=== PATIENT | male | born 1945 | race Caucasian/White ===

== ENCOUNTER 2018-01-05 09:00 | Day surgery (SDC) | payer MEDICARE, OTHER, SELFPAY ==
[2018-01-05] VITALS (9 sets, daily range): BP systolic 100–149; BP diastolic 58–89; PULSE 76–89; RESP 10–24; TEMP 36.6–36.8; O2SAT 92–96; BMI 34.9
--- NOTE | 2018-01-05 | PATH_ITS ---
[facility] Accession Number: [id number] . 01 Material submitted: . PART A: ANTRAL BIOPSIES PART B: EG JUNCTION BIOPSY . 02 Diagnosis: A. Antrum, Biopsies: Gastric antral and body mucosa with mild chronic gastritis. No evidence of Helicobacter organisms on H/E stain. Negative for intestinal metaplasia, dysplasia or malignancy. . B. Gastroesophageal Junction, Biopsy: Squamous mucosa with no diagnostic abnormality. 0-1 eosinophils per 40X high-power field. No columnar mucosa present for evaluation. Negative for dysplasia or malignancy. MRV/01/06/2018 . 02 Electronically signed: . Remington Stone MD, PhD, Pathologist NPI- [id number] . 01 Gross description: . Received two formalin-filled containers, both labeled with the patient's name: . A. In a container labeled antral, are three 0.1-0.3 cm portions of tissue, entirely submitted in cassette A. B. In a container labeled EG junction, are four 0.1-0.3 cm portions of tissue, entirely submitted in cassette B. ([id number]) /FRR . 02 Pathologist provided ICD-10: R10.13 . 02 CPT . 736270, 568994 Specimen Comment: A duplicate report has been generated due to demographic updates. Performed at: 01 [facility] [address] [place] [address], [place], [place] [id number] MD Gt Katz MD Phone: [phone] Performed at: 02 [facility] [address] [place], [place] [id number] MD Nola Russell MD Phone: [phone]
[2018-01-05] MEDS: SODIUM CHLORIDE 0.9% 1,000 ML 200 ML IV (09:48)
--- NOTE | 2018-01-05 10:05 | PM.PREOP ---
Pre-operative Note Interval Note Pre-op Check: Yes History & Physical Reviewed by Physician and Yes Exam Performed Changes: No H&P completed within 30 days and has changed as indicated here:: Patient seen and examined today. No changes from his history and physical examination as documented December 24, 2017. Proceed with EGD today as planned. ASA Class (for procedural sedation): II
--- NOTE | 2018-01-05 10:30 | PM.OP.ENDO ---
Operative Date/Time/Diagnoses Date of procedure: 01/05/18 Time of procedure: 10:30 Pre-op diagnosis: Reflux and epigastric pain Post-op diagnosis: other (Mild gastritis, small hiatal hernia, and minimal esophagitis) Procedure & Clinicians Study performed: 1. Sedation per surgeon 2. Esophagogastroduodenoscopy with cold forceps biopsies Same procedure as scheduled: Yes Indications: 72-year-old male with longstanding history of reflux disease who recently presented with dysphagia and epigastric pain. His symptoms were progressively severe despite proton pump inhibitor therapy. He was therefore recommended ago EGD with biopsy and possible dilatation. Surgeon: Sergio Monzon Procedure Notes SCOAP/Timeout: Yes Procedure in detail: After obtaining informed consent, the patient was brought to the GI suite and placed in the left lateral decubitus position on the examination table. After placement of appropriate monitors, the patient was given incremental doses of Versed and Fentanyl until an appropriate level of sedation was achieved. A time out was held per SCOAP protocol. A bite block was gently placed between the patient's teeth. The endoscope was lubricated and then passed into the patient's posterior oropharynx. The esophagus was cannulated under direct vision and the scope was passed to the second portion of the duodenum without difficulty. The scope was then withdrawn with careful examination of all areas of the upper GI tract and mucosa. In the stomach, the instrument was retroflexed and the GE junction examined. Z-line was located 40 cm from the incisors. The scope was straightened and the procedure continued with examination of the remainder of the upper GI tract. Findings are noted above. Air was aspirated from the stomach and the endoscope gently removed from the esophagus. The patient was allowed to awaken from sedation without difficulty and taken to the post-anesthesia care unit in good condition. Scope withdrawal time: Not applicable Sedation minutes: 11 Findings: gastritis, hiatal hernia and other findings (Minimal localized esophagitis at the gastroesophageal junction but without obvious Metcalf's esophagus. No esophageal strictures or lesions.) Specimen(s): other (1. Antral biopsies 2. Gastroesophageal junction biopsies) Complications: none Recommendations: Reflux diet and Continue medication(s) Plan for aftercare: 1. Discharge home Follow up: weeks (Two weeks with Dr. Monzon) Disposition: PACU
[2018-01-05] MEDS: fentaNYL 250 MCG/5 ML INJ IV (10:34)
[2018-01-05] MEDS: MIDAZOLAM 5 MG/5 ML VIAL IV (10:35)
[2018-01-05] MEDS: TETRACAINE/BENZOCAINE/BUTAMBEN (CETACAINE) BOTTLE 1 SPRAY TOP (10:36)
[2018-01-05] MEDS: LIDOCAINE 4% SOLN 50 ML 20 ML TOP (10:37)
== END 2018-01-05 11:36 | disposition home or self-care (01) ==
PROVIDERS: PCP Family Medicine; Visit Provider Surgery
PROC: 0DJ08ZZ Inspection of Upper Intestinal Tract, Via Natural or Artificial Opening Endoscopic (ICD-10-PCS; CPT 43235; principal; 2018-01-05 10:30)
DX: K21.0 Gastro-esophageal reflux disease with esophagitis (principal); K29.70 Gastritis, unspecified, without bleeding; K44.9 Diaphragmatic hernia without obstruction or gangrene; F17.210 Nicotine dependence, cigarettes, uncomplicated; F41.9 Anxiety disorder, unspecified; I10 Essential (primary) hypertension; E78.5 Hyperlipidemia, unspecified
CPT/HCPCS: 43239; 88305; 99152; J2250; J3010

== ENCOUNTER → 2019-02-11 11:17 | Outpatient (CLI) | payer MEDICARE, OTHER, SELFPAY ==
--- NOTE | 2019-02-11 12:30 | DI.CT.S_ITS ---
PROCEDURE: CT ABDOMEN W CON INDICATIONS: Right upper quadrant pain TECHNIQUE: After the administration of oral and intravenous contrast, 5 mm thick sections acquired from the diaphragms to the iliac crests. 5 mm thick coronal and sagittal reformats were acquired. For radiation dose reduction, the following was used: automated exposure control, adjustment of mA and/or kV according to patient size. COMPARISON: None. FINDINGS: Image quality: Excellent. Lung bases: Lung bases are clear. Heart size is normal. Solid organs: Liver is normal in size and enhancement. Gallbladder appears normal. Biliary system is non dilated. Pancreas enhances normally. Spleen is normal in size and enhancement. No adrenal nodules. Kidneys are normal in size, without hydronephrosis. Peritoneum and bowel: Contrast enhanced bowel loops appear normal in caliber. No free fluid or air. Food material fills but does not distend much of the stomach. Accurate assessment of the gastric wall therefore is very limited. Nodes and vessels: No retroperitoneal or mesenteric adenopathy by size criteria. Aorta and inferior vena cava are normal in size. Bones: No suspicious bony lesions. No vertebral body compression fractures. Miscellaneous: No ventral hernias. Note is made of mild prominence of the soft tissues at the umbilicus, tapering peripherally. No associated fluid collection is seen in this area. IMPRESSION: 1. A definite source of right upper quadrant pain is not seen. As noted, the gastric wall is poorly visualized due to food material filling much of the gastric lumen, without distention. No inflammatory process is found, no biliary distention is seen. 2. Please correlate clinically at the umbilicus where the soft tissues are unusually prominent in their appearance without associated fluid collection. Omphalitis, chronic or acute, could produce this appearance. Dictated by: Willy Kumari M.D. on 02/11/2019 at 16:29 Approved by: Willy Kumari M.D. on 02/11/2019 at 16:33
== END ==
PROVIDERS: PCP Student in an Organized Health Care Education/Training Program; Visit Provider Nurse Practitioner Family
DX: R10.11 Right upper quadrant pain (principal)
CPT/HCPCS: 74160

== ENCOUNTER → 2019-12-13 14:54 | Outpatient (CLI) | payer MEDICARE, OTHER, SELFPAY ==
[2019-12-14 13:28] LABS: COVID19 Sendout Not Detected (Not Detect)
== END ==
PROVIDERS: PCP Student in an Organized Health Care Education/Training Program; Visit Provider Physician Assistant
DX: Z11.59 Encounter for screening for other viral diseases (principal)
CPT/HCPCS: 87635

== ENCOUNTER → 2019-12-16 14:42 | Outpatient (CLI) | payer MEDICARE, OTHER, SELFPAY ==
--- NOTE | 2019-12-24 17:20 | PM.PFT.1 ---
Pulmonary Function Test Referral & Results Date Patient Seen: 12/16/19 Requesting provider: Yadira Oliver Results: The spirometry demonstrates an FVC of 3.82 L which is 95% of predicted. The FEV1 was measured at 1.90 L which is 64% of predicted. The FEV1/FVC ratio was 50 which is 67% of predicted. Following the administration of bronchodilator there was no notable change. Lung volumes show an SVC of 4.07 L which is 95% of predicted. The diffusing capacity was measured at 26.17 which is 80% of predicted. The maximum voluntary ventilation was minimally reduced Interpretation: This study demonstrates moderate obstructive lung disease based on reduction FEV1 and FEV1/FVC ratio, without evidence of benefit following bronchodilator administration
== END ==
PROVIDERS: PCP Student in an Organized Health Care Education/Training Program; Referring Provider Student in an Organized Health Care Education/Training Program; Visit Provider Student in an Organized Health Care Education/Training Program
DX: R06.09 Other forms of dyspnea (principal); F17.210 Nicotine dependence, cigarettes, uncomplicated; J98.8 Other specified respiratory disorders
CPT/HCPCS: 94060; 94726; 94729

== ENCOUNTER → 2021-06-18 15:39 | Outpatient (CLI) | payer MEDICARE, OTHER, SELFPAY ==
[2021-06-18 17:41] LABS: COVID19 -Nasal RAPID Negative (Negative)
== END ==
PROVIDERS: PCP Student in an Organized Health Care Education/Training Program; Visit Provider Family Medicine Sleep Medicine
DX: Z20.822 Contact with and (suspected) exposure to COVID-19 (principal)
CPT/HCPCS: 87635; C9803

== ENCOUNTER 2021-06-19 12:42 | Day surgery (SDC) | payer MEDICARE, OTHER, SELFPAY ==
[2021-06-19] VITALS (7 sets, daily range): BP systolic 116–159; BP diastolic 59–96; PULSE 75–91; RESP 14–19; TEMP 36–36.6; O2SAT 92–97; BMI 35.2
--- NOTE | 2021-06-19 | PATH_ITS ---
[facility] Accession Number: [id number] . 01 Material submitted: . PART A: colon - SIGMOID BIOPSY PART B: rectum - RECTAL POLYP . 02 Diagnosis: A. Sigmoid Colon, Biopsy: Hyperplastic colonic mucosa. Negative for active, chronic, and microscopic colitis. Negative for dysplasia and malignancy. . B. Rectum, Polyp, Biopsy: Benign fibroepithelial polyp (skin tag). MRV 06/25/2021 1429 Local . 02 Electronically signed: . Nola Russell MD, Pathologist NPI- [id number] . 01 Gross description: . Part A: SIGMOID BIOPSY: Received in formalin is 1 fragment(s) of potter, soft tissue measuring 0.2 x 0.1 x 0.1 cm submitted entirely in 1 cassette(s) Part B: RECTAL POLYP: Received in formalin is 1 fragment(s) of potter, soft tissue measuring 2.0 x 1.5 x 1.0 cm which is inked, serially sectioned and submitted entirely in 4 cassette(s) /CPE 06/20/2021 0848 Local . 02 Pathologist provided ICD-10: Z12.11 . 02 CPT . 863694, [id number] Specimen Comment: A courtesy copy of this report has been sent to [phone] Performed at: 01 [facility] [address], [place], [place] [id number] MD Gt Katz MD Phone: [phone] Performed at: 02 [facility] [address] [place], [place] [id number] MD Nola Russell MD Phone: [phone]
--- NOTE | 2021-06-19 12:15 | PM.HP.1 ---
History of Present Illness History of Present Illness Date Patient Seen: 06/19/21 Chief complaint: SCREENING COLONOSCOPY Narrative: 75 year old male comes in today for consideration of a screening colonoscopy. Two lifetime colonoscopies. Last colonoscopy on 04/30/[address] Wolfe, noted to be tortuous with markedly elongated sigmoid. Colonoscopy was indicated for screening and personal history of colon polyps. Findings included a 2-3 mm tubular adenoma in the mid-transverse colon, minimal diverticulosis, and prolapsing and ulcerated external/internal hemorrhoids. There have been no lower GI symptoms suggesting disease such as change in bowel habits, bleeding, abdominal pain or anemia. There's been no family history of colon cancer or colon polyps. Overall health issues have been stable, including no major cardiac events for at least 6 weeks. PCP: Dr. Arroyo Past Medical History: Metabolic syndrome HYPERLIPIDEMIA HYPERTENSION CHEST PAIN SLEEP APNEA, OBSTRUCTIVE, failed CPAP ATAXIA GERD DYSPHAGIA BPH W/URINARY OBSTRUCTION TOBACCO USE DISORDER OBESITY (BMI <40) CATARACT ALLERGIC RHINITIS Cough due to PITO inhibitor ONYCHOMYCOSIS History of colon polyps Past Surgical History: Palate revision for sleep apnea Umbilical hernia repair 2016 Cataract Extraction bilateral 06/08 Colonoscopy x2 Family History: Father: Heart disease Sibling(s): breast cancer Social History: Marital Status: Reyes Choe Children: Nikos and Juanita Aguilera Occupation: Contractor Household Members: Education: 14 years Alcohol drinks/day: 0 Caffeine use/day: 5 Type of Exercise: work, walking Exercise Times per Week: daily Guns in home: yes Dental Care w/in 6 mos.: yes Sun Exposure: frequently Seat Belt Use: yes Smoking Status: current every day smoker Tobacco Type: cigars Counseled to Quit Smoking: yes Drug Use: never HIV High Risk Behavior: no Patient History Medical History Anxiety Dysphagia History of colon polyps Hyperlipidemia Hypertension Mild acid reflux Obesity Tobacco abuse Umbilical hernia Surgical History History of cataract surgery History of colonoscopy History of esophagogastroduodenoscopy (EGD) History of umbilical hernia repair History of uvulopalatopharyngoplasty Family & Social History Family History Father Heart disease Social History: household members spouse Tobacco & Substance use: Smoking Status Current every day smoker Meds Home Medications and Allergies Home Medications Medication Instructions Recorded Confirmed Type losartan 25 mg tablet 25 mg PO DAILY #0 04/30/16 06/19/21 History fenofibrate micronized 200 mg 200 mg PO DAILY 12/24/17 06/19/21 History capsule omeprazole 40 mg capsule,delayed 40 mg PO DAILY 12/24/17 06/19/21 History release Allergies Allergy/AdvReac Type Severity Reaction Status Date / Time Penicillins [PENICILLINS] Allergy Mild RASH Verified 03/24/19 14:58 Review of Systems Review of Systems Narrative: All remaining ROS were reviewed and negative except as addressed. Exam Narrative Exam Narrative: GENERAL: Alert and oriented, appearing stated age and in no acute distress. HEENT: Head normocephalic/atraumatic. Extraocular movements intact. LUNGS: Clear to ausculation bilaterally, no wheezes, rhonchi or rales. CV: Normal S1 and S2 with regular rate and rhythm, no audible murmurs, rubs or gallops. ABDOMEN: Soft, non-tender, non-distended, no organomegaly. Positive bowel sounds. EXTREMITIES: No clubbing, cyanosis, or edema. NEURO: Cranial nerves II through XII grossly intact, no focal deficits. PSYCH: Alert and oriented x 3. SKIN: No concerning lesions. Assessment & Plan Assessment & Plan narrative: 1. History of colon polyps 2. Screening for colon cancer Plan for colonoscopy. The nature and character of the procedure as well as anticipated results were discussed. The possibility of not completing the procedure was also discussed. Possible complications including aspiration pneumonia, bleeding, perforation and reaction to medications either for sedation or preparation and missed lesions were discussed. Questions were answered and proceeding to the colonoscopy was elected. Informed consent signed. I sincerely appreciate the referral allowing me to participate in this patient's care. Please contact me with any questions or concerns. Time Spent With Patient Critical Care time: I spent a total of [] minutes of critical care time on this patient's care today; this time is exclusive of procedural time.
--- NOTE | 2021-06-19 12:21 | PM.OP.COLON ---
Operative Date/Time/Diagnoses Date of procedure: 06/19/21 Procedure Notes SCOAP/Timeout: 1:52 p.m. Procedure in detail: ENDOSCOPIST: Yadira Oliver MD Sedation RN: Amanda Lugo RN Sedation start time: 1:53 p.m. Sedation end time: 2:28 p.m. PROCEDURE: Colonoscopy with hot snare and hemoclip INDICATIONS: 1. History of colon polyps 2. Screening for colon cancer MEDICATION: Levsin 0.125 mg sublingual, incremental doses of Versed and fentanyl until appropriate level sedation achieved. ASA CLASS: 2 CECAL WITHDRAWAL TIME: 33 minutes COMPLICATIONS: None. EXTENT OF PROCEDURE: Cecum. QUALITY OF PREP: Good with portions of liquid stool. PROCEDURE: Prior to insertion of the colonoscope, a digital rectal examination was accomplished with circumferential palpation of the distal rectal mucosa without significant findings being noted. The high-definition colonoscope was passed into the rectum in the usual fashion and advanced over to the cecum without difficulty. The ileocecal valve, appendiceal stoma, and medial wall all could be inspected and no abnormalities were seen. ASCENDING COLON: As the colonoscope was withdrawn, care was taken to expose and inspect the haustral folds and no abnormalities were seen. HEPATIC FLEXURE: Normal, no polyps, diverticula or other abnormalities. TRANSVERSE COLON: Normal, no polyps, diverticula or other abnormalities. DESCENDING COLON: Normal, no polyps, diverticula or other abnormalities. SIGMOID COLON: A 2 mm polyp was seen and removed with cold biopsy forceps, excellent hemostasis. Otherwise, minor diverticulosis and no other abnormalities. RECTUM: J maneuver was produced. A 2 cm rectal pedunculated polyp was seen and removed with 10 mm hot snare. Excellent hemostasis noted, hemoclip placed prophylactically. There was no significant perianal disease. The J maneuver was broken. The remainder of the rectum was inspected and there was minor external hemorrhoid disease. The scope was withdrawn. IMPRESSION: 1. Sigmoid polyp x1, 2 mm, removed with cold biopsy forceps 2. Rectal polyp x1, 2 cm, removed with hot snare snare, hemoclip placed prophylactically 3. External hemorrhoid disease, minor 4. Sigmoid diverticulosis, minor PLAN: 1. Follow-up in clinic status post pathology results. The possibility of a missed lesion including a malignancy has been discussed with the patient previously. Potential alarm symptoms have been discussed and should be reported immediately.
[2021-06-19] MEDS: LACTATED RINGERS 1,000 ML 200 ML IV (13:15)
[2021-06-19] MEDS: HYOSCYAMINE 0.125 MG TABLET PO (13:16)
[2021-06-19] MEDS: fentaNYL 250 MCG/5 ML INJ 150 MCG IV (13:53)
[2021-06-19] MEDS: MIDAZOLAM 5 MG/5 ML VIAL IV (13:53)
== END 2021-06-19 15:22 | disposition home or self-care (01) ==
PROVIDERS: PCP Student in an Organized Health Care Education/Training Program; Referring Provider Student in an Organized Health Care Education/Training Program; Visit Provider Student in an Organized Health Care Education/Training Program
PROC: 0DJD8ZZ Inspection of Lower Intestinal Tract, Via Natural or Artificial Opening Endoscopic (ICD-10-PCS; CPT 45378; principal; 2021-06-19 13:45)
DX: Z12.11 Encounter for screening for malignant neoplasm of colon (principal); Z86.010 Personal history of colon polyps; K57.30 Diverticulosis of large intestine without perforation or abscess without bleeding; K64.4 Residual hemorrhoidal skin tags; K63.5 Polyp of colon
CPT/HCPCS: 45385; 45380; C9803; J2250; J3010

== ENCOUNTER 2022-06-23 10:38 | Emergency (ER) | payer MEDICARE, OTHER, SELFPAY ==
[2022-06-23] VITALS (7 sets, daily range): BP systolic 144–180; BP diastolic 89–103; PULSE 61–88; RESP 18–33; TEMP 36.4; O2SAT 97–99; BMI 33.0
--- NOTE | 2022-06-23 12:12 | DI.CT.S_ITS ---
PROCEDURE: CT ANGIO HEAD AND NECK INDICATIONS: sharp left sided headache 4 days, giant cell vs abnormal? TECHNIQUE: Pre-contrast 4.5 mm thick sections acquired from the foramen magnum to the vertex. After the administration of intravenous contrast, 1 mm thick sections acquired from the aortic arch through the [place] of [place]. Post-contrast 4.5 mm thick sections then re-acquired from the foramen magnum to the vertex. 3-dimensional ofjxgry-faxpdjrsb-gwdlgihktn (MIP) and/or volume rendering reformats were acquired of the central intracranial vasculature and neck separately. For radiation dose reduction, the following was used: automated exposure control, adjustment of mA and/or kV according to patient size. COMPARISON: [facility], , CAROTID ARTERY DOPPLER BILAT, 03/21/2014, 8:20. FINDINGS: Image quality: Mild streak artifact can be seen through the skull base. BRAIN: CSF spaces: Ventricles are normal in size and shape. Basal cisterns are patent. No extra-axial fluid collections. Brain: No midline shift. No intracranial bleeds or masses. Bull-white matter interface appears intact. Skull and face: Calvarium and facial bones appear intact, without suspicious lesions. Orbits appear normal. Sinuses: Moderate mucosal thickening is seen within the ethmoid air cells and the left sphenoid sinus. Within the right maxillary sinus, there is a mucous retention cyst seen. The visualized paranasal sinuses are otherwise unremarkable. No abnormal fluid is seen within the mastoid air cells. HEAD CT ANGIOGRAPHY: Anterior circulation: Intracranial internal carotid arteries are normal in size and flow. The flow within the paired anterior cerebral arteries is normal and symmetric. The flow within the middle cerebral arteries is normal and symmetric. The anterior communicating artery is seen. No aneurysms are seen. Posterior circulation: Visualized portions of the vertebral arteries demonstrate normal caliber, and join to form a normal appearing basilar artery. Flow within the posterior cerebral arteries is normal and symmetric. No aneurysms are seen. NECK CT ANGIOGRAPHY: Carotid system: Incidental note is made of a common origin of the right brachiocephalic artery and the left common carotid artery (bovine type arch). This is considered to be a developmental variant of no clinical consequence. The origins of the common carotid arteries appear patent. The common carotid arteries demonstrate normal caliber and courses. The bifurcation regions are both widely patent. The internal carotid arteries demonstrate normal calibers and courses. Scrutiny is given to the external carotid arteries and the temporal arteries. To the limits of CT, no significant abnormalities are seen. Posterior circulation: The origins of the vertebral arteries both appear widely patent. The more superior extracranial portions of both vertebral arteries also demonstrate normal courses and calibers. They join to form a normal appearing basilar artery. Soft tissues: Visualized neck soft tissues demonstrate no suspicious abnormalities. Bones: No suspicious bony lesions. Visualized cervical spine appears normally aligned. At least moderate lower cervical spine degenerative change can be seen. IMPRESSION: No acute intracranial process is seen. No acute intracranial hemorrhage is seen. No significant intracranial arterial abnormality is seen. Within the arteries of the neck, no hemodynamically significant stenosis can be seen. No significant abnormality of the external carotid arteries or the temporal arteries can be seen. Moderate paranasal sinus disease is noted. Additional findings: At least moderate lower cervical spine degenerative change Bovine type aortic branching pattern Any quantitative measurements of stenosis were performed using NASCET criteria. Dictated by: William Dunne M.D. on 06/23/2022 at 13:24 Approved by: William Dunne M.D. on 06/23/2022 at 13:28
--- NOTE | 2022-06-23 12:26 | ED_ITS ---
HPI - Headache <DEJA Ray - Last Filed: 06/23/22 15:00> General Chief Complaint: Headache Stated Complaint: headache as of , spot on head feels warm Time Seen by Provider: 06/23/22 12:03 Mode of arrival: Ambulatory History of Present Illness HPI Narrative: This is a 76-year-old gentleman presents emergency department complaining of 4 days of a left-sided headache that he states started as hair pulling sensation on the left parietal scalp. He states that it has been pulsating, increasing in severity, states it woke him up 6 times last night. Complains of a left-sided headache in this same region. Denies any pain over his temporal region, denies vision changes, weakness, urinary changes, fever chills, neck pain, rash, recent injury, or other associated symptoms. He states that his is on hospice and he cares for her, he came in because he has been having worsening pain. States he has a history of 55 years of smoking, is on losartan for his blood pressure and omeprazole for GERD. States that it feels hot to palpation over his scalp where it hurts. He is not anticoagulated Related Data Home Medications Medication Instructions Recorded Confirmed losartan 25 mg tablet 25 mg PO DAILY ##0 04/30/16 06/19/21 fenofibrate micronized 200 mg 200 mg PO DAILY 12/24/17 06/19/21 capsule omeprazole 40 mg capsule,delayed 40 mg PO DAILY 12/24/17 06/19/21 release Previous Rx's Medication Instructions Recorded gabapentin 100 mg capsule 100 mg PO BEDTIME #14 caps 06/23/22 naproxen 500 mg tablet (Naprosyn) 500 mg PO BID PRN pain #30 tabs 06/23/22 prednisone 20 mg tablet 20 mg PO DAILY 4 days #4 tabs 06/23/22 Allergies Allergy/AdvReac Type Severity Reaction Status Date / Time Penicillins [PENICILLINS] Allergy Mild RASH Verified 06/23/22 10:57 Review of Systems <DEJA Ray - Last Filed: 06/23/22 15:00> Review of Systems ROS Unobtainable: All systems reviewed & are unremarkable except as noted in HPI and below Patient History <DEJA Ray - Last Filed: 06/23/22 15:00> Medical History (Updated 06/23/22 @ 14:49 by DEJA Ray) Anxiety Dysphagia History of colon polyps Hyperlipidemia Hypertension Mild acid reflux Obesity Tobacco abuse Umbilical hernia Surgical History History of cataract surgery History of colonoscopy History of esophagogastroduodenoscopy (EGD) History of umbilical hernia repair History of uvulopalatopharyngoplasty Family History Father Heart disease Social History household members: spouse Smoking Status: Current every day smoker alcohol intake: never Smoking Status: Current every day smoker tobacco type: cigarettes alcohol intake frequency: 0-2 drinks per day Substance Use Type: does not use Exam <DEJA Ray - Last Filed: 06/23/22 15:00> Narrative Exam Narrative: Reviewed vitals signs and nursing notes. General: Pleasant, sitting upright, in no acute distress, well groomed, afebrile HEENT: symmetrical facial expressions, moist mucous membranes, neck is supple, no anterior cervical lymphadenopathy, no palpable scalp deformity, left parietal scalp without a rash, small area of seborrheic dermatitis without erythema, no tenderness, no rash or lesion, no exquisite tenderness with exam CV: regular rate and rhythm, warm extremities Respiratory: normal work of breathing, without tachypnea or hypoxia. GI: abdomen soft and nondistended MSK: moves all extremities, no weakness, normal tone, ambulatory without deficit Skin: brisk capillary refill, without rash, blister, erythema, or evidence of abnormal texture Neuro: clear speech and normal cognition, A&O x3, GCS 15, no focal motor or sensation deficits, without visual neglect, EOMI, PERRLA, cranial nerves 2-12 are grossly intact Initial Vital Signs Initial Vital Signs: Vital Signs Temperature 97.6 F 06/23/22 10:53 Pulse Rate 88 06/23/22 10:53 Respiratory Rate 18 06/23/22 10:53 Blood Pressure 144/94 H 06/23/22 10:53 Pulse Oximetry 99 06/23/22 10:53 Oxygen Delivery Method Room Air 06/23/22 10:53 <Fabrizio Tejeda DO - Last Filed: 06/23/22 13:26> Initial Vital Signs Initial Vital Signs: Vital Signs Temperature 97.6 F 06/23/22 10:53 Pulse Rate 88 06/23/22 10:53 Respiratory Rate 18 06/23/22 10:53 Blood Pressure 144/94 H 06/23/22 10:53 Pulse Oximetry 99 06/23/22 10:53 Oxygen Delivery Method Room Air 06/23/22 10:53 Course <DEJA Ray - Last Filed: 06/23/22 15:00> Orders Ordered: ED Orders 06/23/22 12:12 CT angio head and neck Stat EKG-12 Lead Stat 06/23/22 13:15 CBC Auto Diff [Complete Blood Count AUTO DIFF] Stat CMP [Comprehensive Metabolic Panel] Stat CRP [C-Reactive Protein Quant] Stat ESR [Erythrocyte Sedimentation Rate] Stat Magnesium Stat Discontinued Medications Acetaminophen (Acetaminophen 325 Mg Tablet) 650 mg PO NOW ONE Stop: 06/23/22 13:00 Last Admin: 06/23/22 13:15 Dose: 650 mg Documented By: SB Sodium Chloride (Normal Saline 0.9%) 1,000 mls @ 1,000 mls/hr IV BOLUS ONE Stop: 06/23/22 13:11 Last Admin: 06/23/22 13:14 Dose: 1,000 mls/hr Documented By: SB Ketorolac Tromethamine (Ketorolac 30 Mg/Ml Vial) 30 mg IV NOW ONE Stop: 06/23/22 13:00 Last Admin: 06/23/22 13:15 Dose: 30 mg Documented By: SB Pantoprazole Sodium (Pantoprazole 40 Mg Vial) 20 mg IV NOW ONE Stop: 06/23/22 13:00 Last Admin: 06/23/22 13:14 Dose: 20 mg Documented By: SB Prednisone (Prednisone 20 Mg Tablet) 60 mg PO NOW ONE Stop: 06/23/22 13:00 Last Admin: 06/23/22 13:15 Dose: 60 mg Documented By: SB Vital Signs Vital signs: Vital Signs - 8 hr 06/23/22 10:53 06/23/22 13:44 06/23/22 13:44 Temperature 97.6 F Pulse Rate 88 66 Respiratory Rate 18 Blood Pressure 144/94 H 171/89 H Pulse Oximetry 99 97 Oxygen Delivery Method Room Air 06/23/22 14:00 06/23/22 14:00 Temperature Pulse Rate 63 Respiratory Rate Blood Pressure 150/92 H Pulse Oximetry 97 Oxygen Delivery Method Room Air <Fabrizio Tejeda DO - Last Filed: 06/23/22 13:26> Orders Ordered: ED Orders 06/23/22 12:12 CT angio head and neck Stat EKG-12 Lead Stat 06/23/22 13:15 CBC Auto Diff [Complete Blood Count AUTO DIFF] Stat CMP [Comprehensive Metabolic Panel] Stat CRP [C-Reactive Protein Quant] Stat ESR [Erythrocyte Sedimentation Rate] Stat Magnesium Stat Discontinued Medications Acetaminophen (Acetaminophen 325 Mg Tablet) 650 mg PO NOW ONE Stop: 06/23/22 13:00 Last Admin: 06/23/22 13:15 Dose: 650 mg Documented By: EDDA Sodium Chloride (Normal Saline 0.9%) 1,000 mls @ 1,000 mls/hr IV BOLUS ONE Stop: 06/23/22 13:11 Last Admin: 06/23/22 13:14 Dose: 1,000 mls/hr Documented By: SB Ketorolac Tromethamine (Ketorolac 30 Mg/Ml Vial) 30 mg IV NOW ONE Stop: 06/23/22 13:00 Last Admin: 06/23/22 13:15 Dose: 30 mg Documented By: SB Pantoprazole Sodium (Pantoprazole 40 Mg Vial) 20 mg IV NOW ONE Stop: 06/23/22 13:00 Last Admin: 06/23/22 13:14 Dose: 20 mg Documented By: SB Prednisone (Prednisone 20 Mg Tablet) 60 mg PO NOW ONE Stop: 06/23/22 13:00 Last Admin: 06/23/22 13:15 Dose: 60 mg Documented By: SB Vital Signs Vital signs: Vital Signs - 8 hr 06/23/22 10:53 06/23/22 13:44 06/23/22 13:44 Temperature 97.6 F Pulse Rate 88 66 Respiratory Rate 18 Blood Pressure 144/94 H 171/89 H Pulse Oximetry 99 97 Oxygen Delivery Method Room Air 06/23/22 14:00 06/23/22 14:00 Temperature Pulse Rate 63 Respiratory Rate Blood Pressure 150/92 H Pulse Oximetry 97 Oxygen Delivery Method Room Air MDM - Headache <DEJA Ray - Last Filed: 06/23/22 15:00> Lab Data 06/23/22 13:15 06/23/22 13:15 Labs: Lab Results 06/23/22 06/23/22 Range/Units 13:15 13:15 WBC 5.9 (4.5-11.0) X10^3/uL RBC 5.60 (4.5-5.9) X10^6/uL Hgb 16.1 (13.5-17.5) g/dL Hct 47.0 (41-53) % MCV 84.0 (80-100) fL MCH 28.8 (26-34) PG MCHC 34.3 (30-36) % RDW 14.3 (11.6-14.8) % Plt Count 169 (150-400) X10^3/uL Neut % (Auto) 61.3 (50-75) % Lymph % (Auto) 28.1 (25-40) % [place] % (Auto) 8.3 (3-14) % Eos % (Auto) 1.9 L (2-4) % Baso % (Auto) 0.4 (0-2) % Neut # (Auto) 3600 (6267-3559) /uL Lymph # (Auto) 1600 (8175-9229) /uL [place] # (Auto) 500 (0-900) /uL Eos # (Auto) 100 (0-450) /uL Baso # (Auto) 0 (0-100) /uL ESR 2 (0-15) MM/HR Sodium 139 (137-145) mmol/L Potassium 4.1 (3.4-5.1) mmol/L Chloride 105 (98-107) mmol/L Carbon Dioxide 29 (22-32) mmol/L BUN 13 (9-20) mg/dL Creatinine 0.77 (0.66-1.25) mg/dL Estimated GFR > 60 (>60) mL/min BUN/Creatinine Ratio 16.9 (6-22) Glucose 96 (80-110) mg/dL Calcium 8.9 (8.4-10.2) mg/dL Magnesium 1.6 (1.6-2.3) mg/dL Total Bilirubin 1.0 (0.2-1.3) mg/dL AST 25 (17-59) IU/L ALT 21 (<50) IU/L Alkaline Phosphatase 57 (38-126) U/L C-Reactive Protein < 0.5 (<1.0) mg/dL Total Protein 7.3 (6.3-8.2) g/dL Albumin 4.2 (3.5-5.0) g/dL Globulin 3.1 (1.7-4.1) g/dL Albumin/Globulin Ratio 1.4 (1.0-2.8) Imaging Data CTA - brain/neck: Radiologist's Impression: PROCEDURE:? CT ANGIO HEAD AND NECK ? INDICATIONS:? sharp left sided headache 4 days, giant cell vs abnormal? ? TECHNIQUE:? Pre-contrast 4.5 mm thick sections acquired from the foramen magnum to the vertex.? After the administration of intravenous contrast, 1 mm thick sections acquired from the aortic arch through the [place].? Post-contrast 4.5 mm thick sections then re-acquired from the foramen magnum to the vertex.? 3-dimensional vxecihl-udjupjddx-hbnznlcnqg (MIP) and/or volume rendering reformats were acquired of the central intracranial vasculature and neck separately. For radiation dose reduction, the following was used:? automated exposure control, adjustment of mA and/or kV according to patient size.? ? COMPARISON:? [facility], , CAROTID ARTERY DOPPLER BILAT, 03/21/2014, 8:20. ? FINDINGS:? Image quality:? Mild streak artifact can be seen through the skull base. ? BRAIN:? CSF spaces:? Ventricles are normal in size and shape.? Basal cisterns are zhang nt.? No extra-axial fluid collections.? ? Brain:? No midline shift.? No intracranial bleeds or masses.? Bull-white matter interface appears intact.? ? Skull and face:? Calvarium and facial bones appear intact, without suspicious lesions.? Orbits appear normal.? ? Sinuses:? Moderate mucosal thickening is seen within the ethmoid air cells and the left sphenoid sinus.? Within the right maxillary sinus, there is a mucous retention cyst seen. ?The visualized paranasal sinuses are otherwise unremarkable. No abnormal fluid is seen within the mastoid air cells. ? HEAD CT ANGIOGRAPHY:? Anterior circulation:? Intracranial internal carotid arteries are normal in size and flow.? The flow within the paired anterior cerebral arteries is normal and symmetric.? The flow within the middle cerebral arteries is normal and symmetric.? The anterior communicating artery is seen.? No aneurysms are seen.? ? Posterior circulation:? Visualized portions of the vertebral arteries demonstrate normal caliber, and join to form a normal appearing basilar artery.? Flow within the posterior cerebral arteries is normal and symmetric.? No aneurysms are seen.? ? NECK CT ANGIOGRAPHY:? Carotid system:? Incidental note is made of a common origin of the right brachiocephalic artery and the left common carotid artery (bovine type arch). This is considered to be a developmental variant of no clinical consequence. The origins of the common carotid arteries appear patent.? The common carotid arteries demonstrate normal caliber and courses.? The bifurcation regions are both widely patent.? The internal carotid arteries demonstrate normal calibers and courses.? ? Scrutiny is given to the external carotid arteries and the temporal arteries.? To the limits of CT, no significant abnormalities are seen. ? Posterior circulation:? The origins of the vertebral arteries both appear widely patent.? The more superior extracranial portions of both vertebral arteries also demonstrate normal courses and calibers.? They join to form a normal appearing basilar artery.? ? Soft tissues:? Visualized neck soft tissues demonstrate no suspicious abnormalities.? ? Bones:? No suspicious bony lesions.? Visualized cervical spine appears normally aligned.? At least moderate lower cervical spine degenerative change can be seen. ? ? IMPRESSION:? ? No acute intracranial process is seen.? No acute intracranial hemorrhage is seen.? ? No significant intracranial arterial abnormality is seen.? ? Within the arteries of the neck, no hemodynamically significant stenosis can be seen. ? No significant abnormality of the external carotid arteries or the temporal arteries can be seen. ? Moderate paranasal sinus disease is noted. ? ? ? Additional findings:? At least moderate lower cervical spine degenerative change Bovine type aortic branching pattern ? Any quantitative measurements of stenosis were performed using NASCET criteria.? ? ? Dictated by: William Dunne M.D. on 06/23/2022 at 13:24 ? ? Approved by: William Dunne M.D. on 06/23/2022 at 13:28 ? MDM Narrative Medical decision making narrative: Chief Complaint: headache x4 days left side Independent historian: patient Multiple etiologies for patient's symptoms considered including, but not limited to: giant cell arteritis, intracranial hemorrhage, CVA tension headache/migraine I have independently reviewed the patient's vital signs and nursing notes as well as prior records if available. Pertinent records include: colonoscopy on 06/19/2021 with tubular adenoma in transverse colon with history of colon polyps pathology showed Hyperplastic colonic mucosa, negative for active, chronic, and microscopic colitis, and Negative for dysplasia and malignancy. My interpretation of lab studies: Or all his lab work is unremarkable, no elevation of ESR CRP or WBC My interpretation of imaging: CTA head and neck is negative for mass, intracranial hemorrhage, or significant stenosis Course of care: Lab work ordered including CRP and ESR, CTA head and neck ordered, will treat for giant cell arteritis was 60 mg of oral prednisone, Protonix and Toradol with 1 L of normal saline. IV placed by Westley DUNAWAY, called CT 13 15 to say he can go to CT now. They will take him CT head and neck came back negative for acute abnormality including visualization no hemodynamically significant stenosis can be seen, no significant abnormality of the external carotid or temporal arteries was seen. Patient has lower cervical spine degenerative changes, moderate paraspinal sinus disease Patient's symptoms improved after he received prednisone, Toradol, 1 L normal saline and Protonix. He states that his headache came down to a 1/10. Encourage patient to follow-up with his primary care provider if this is recurrent or persistent, gave him a prescription of gabapentin to use at night for sleep as he is reporting shooting like pains that sound similar in nature to giant cell arteritis. I have given him 4 days of 20 mg of prednisone daily, and naproxen to take with his omeprazole for ongoing pain. He understands to follow-up as needed and return to the emergency department if he develops any vi ashkan changes, weakness, or other abnormality of concern. Social considerations that may affect disposition: none Questions are addressed and there is agreement with the plan and for follow-up. I consulted with the ED attending physician Dr. Tejeda as needed for higher level of care considerations and they were available for discussion and recommendations regarding plan of care and diagnostic testing. Patient is appropriate for outpatient management. <Fabrizio Tejeda, DO - Last Filed: 06/23/22 13:26> Lab Data Labs: Lab Results 06/23/22 06/23/22 Range/Units 13:15 13:15 WBC 5.9 (4.5-11.0) X10^3/uL RBC 5.60 (4.5-5.9) X10^6/uL Hgb 16.1 (13.5-17.5) g/dL Hct 47.0 (41-53) % MCV 84.0 (80-100) fL MCH 28.8 (26-34) PG MCHC 34.3 (30-36) % RDW 14.3 (11.6-14.8) % Plt Count 169 (150-400) X10^3/uL Neut % (Auto) 61.3 (50-75) % Lymph % (Auto) 28.1 (25-40) % [place] % (Auto) 8.3 (3-14) % Eos % (Auto) 1.9 L (2-4) % Baso % (Auto) 0.4 (0-2) % Neut # (Auto) 3600 (3164-5019) /uL Lymph # (Auto) 1600 (8576-5657) /uL [place] # (Auto) 500 (0-900) /uL Eos # (Auto) 100 (0-450) /uL Baso # (Auto) 0 (0-100) /uL ESR 2 (0-15) MM/HR Sodium 139 (137-145) mmol/L Potassium 4.1 (3.4-5.1) mmol/L Chloride 105 (98-107) mmol/L Carbon Dioxide 29 (22-32) mmol/L BUN 13 (9-20) mg/dL Creatinine 0.77 (0.66-1.25) mg/dL Estimated GFR > 60 (>60) mL/min BUN/Creatinine Ratio 16.9 (6-22) Glucose 96 (80-110) mg/dL Calcium 8.9 (8.4-10.2) mg/dL Magnesium 1.6 (1.6-2.3) mg/dL Total Bilirubin 1.0 (0.2-1.3) mg/dL AST 25 (17-59) IU/L ALT 21 (<50) IU/L Alkaline Phosphatase 57 (38-126) U/L C-Reactive Protein < 0.5 (<1.0) mg/dL Total Protein 7.3 (6.3-8.2) g/dL Albumin 4.2 (3.5-5.0) g/dL Globulin 3.1 (1.7-4.1) g/dL Albumin/Globulin Ratio 1.4 (1.0-2.8) Discharge Plan Departure Patient Disposition: Home Clinical Impression: Headache Qualifiers: Headache type: primary stabbing headache Qualified Code(s): G44.85 - Primary stabbing headache Instructions: Tension Headache, DI for Migraine Activity Restrictions/Additional Instructions: *You have been diagnosed with not having any of the serious concerns that I was looking for today. This is good news for you. I have treated you as if this is trigeminal neuralgia, the CT does not show any concerning findings of the vessels in your brain and your neck. This is rather remarkable for your smoking history to be honest. For your ongoing symptoms, please treat with Tylenol as needed, okay to use gabapentin especially to help you sleep. Please take that at nighttime and see if this helps. Please stay hydrated, follow up with your regular doctor as needed, I have forwarded your chart to Dr. Bland. No evidence of a stroke, or anything that should slow you down. Please drink plenty of water, keep your stress level under control as able and follow-up as needed with your primary care provider. *What to do: *Please continue to take your regular medications as directed. [ ] New medication prescriptions sent to your pharmacy: [ ] [ ] New medication written as a paper prescription [ ] No new medications given *Please call and schedule follow up with your primary care provider in 2-3 days, at least for an update. Let them know you were seen in the Emergency Department for the above problem. We will electronically transmit a record of today's note if your PCP or specialist is in our system. *If you do not have a primary care provider please contact [phone] to establish care with one of the [facility] primary care providers. *Return to the Emergency Department for worsening symptoms, inability to keep liquids down, fever greater than 101F, chills, or other concerning symptom. Prescriptions: New naproxen [Naprosyn] 500 mg tablet 500 mg PO BID PRN (Reason: pain) Qty: 30 0RF Rx Instructions: Take with food and water prednisone 20 mg tablet 20 mg PO DAILY 4 Days Qty: 4 0RF gabapentin 100 mg capsule 100 mg PO BEDTIME Qty: 14 0RF No Action losartan 25 MG tablet 25 mg PO DAILY Qty: 0 omeprazole 40 mg capsule,delayed release(DR/EC) 40 mg PO DAILY fenofibrate micronized 200 mg capsule 200 mg PO DAILY Referrals: Yadira Oliver MD [Primary Care Provider] - Robert Bland MD [Physician] - Stand Alone Forms: Patient Portal/API <Fabrizio Tejeda, - Last Filed: 06/23/22 13:26> Cosign ED Attending Cosignature Attestation: Dr Tejeda Co-Sign Statement: I was available for consultation during this patient's emergency department visit. This chart is signed by myself for administrative purposes only. I did not have direct contact with this patient during this visit. They were seen independently by the APC.
[2022-06-23] MEDS: PANTOPRAZOLE 40 MG VIAL 20 MG IV (13:14)
[2022-06-23] MEDS: SODIUM CHLORIDE 0.9% 1,000 ML 1000 ML IV (13:14)
[2022-06-23] MEDS: ACETAMINOPHEN 325 MG TABLET 650 MG PO (13:15)
[2022-06-23] MEDS: KETOROLAC 30 MG/ML VIAL IV (13:15)
[2022-06-23] MEDS: predniSONE 20 MG TABLET 60 MG PO (13:15)
[2022-06-23 13:36] LABS: Add Manual Diff / Slide Review NO; Basophils Absolute Auto 0 /uL (0-100); Basophils Percent Auto 0.4 % (0-2); Eosinophils Absolute Auto 100 /uL (0-450); Eosinophils Percent Auto 1.9 % (2-4); Hemoglobin 16.1 g/dL (13.5-17.5); Lymphocytes Absolute Auto 1600 /uL (1100-4500); Lymphocytes Percent Auto 28.1 % (25-40); Mean Corpuscular HGB Conc 34.3 % (30-36); Mean Corpuscular Hemoglobin 28.8 PG (26-34); Monocytes Absolute Auto 500 /uL (0-900); Monocytes Percent Auto 8.3 % (3-14); Neutrophils Absolute Auto 3600 /uL (1500-7000); Neutrophils Percent Auto 61.3 % (50-75); Platelet Count 169 X10^3/uL (150-400); Red Cell Distribution Width 14.3 % (11.6-14.8); White Blood Cell Count 5.9 X10^3/uL (4.5-11.0)
[2022-06-23 13:59] LABS: Alanine Aminotransferase 21 IU/L (<50); Albumin 4.2 g/dL (3.5-5.0); Albumin Globulin Ratio 1.4 (1.0-2.8); Alkaline Phosphatase 57 U/L (38-126); Aspartate Aminotransferase 25 IU/L (17-59); BUN Creatinine Ratio 16.9 (6-22); Blood Urea Nitrogen 13 mg/dL (9-20); C-Reactive Protein Quant < 0.5 mg/dL (<1.0); Calcium 8.9 mg/dL (8.4-10.2); Carbon Dioxide 29 mmol/L (22-32); Chloride 105 mmol/L (98-107); Estimated Glomerular Filt Rate > 60 mL/min (>60); Globulin 3.1 g/dL (1.7-4.1); Glucose 96 mg/dL (80-110); HEMOLYSIS < 15 (0-50); Magnesium 1.6 mg/dL (1.6-2.3); Potassium 4.1 mmol/L (3.4-5.1); Sodium 139 mmol/L (137-145); Total Protein 7.3 g/dL (6.3-8.2)
[2022-06-23 14:19] LABS: Erythrocyte Sedimentation Rate 2 MM/HR (0-15)
--- NOTE | 2022-06-23 14:23 | PC.NURSE ---
Pt reports history of COPD.
== END 2022-06-23 15:13 | disposition home or self-care (01) ==
PROVIDERS: Emergency Provider Nurse Practitioner Critical Care Medicine; PCP Student in an Organized Health Care Education/Training Program
DX: G44.85 Primary stabbing headache (principal)
CPT/HCPCS: 36415; 70496; 70498; 80053; 83735; 85025; 85651; 86140; 96361; 96374; 96375; 99284; C9113; J1885; Q9967

== ENCOUNTER → 2023-05-14 10:24 | Outpatient (CLI) | payer MEDICARE, OTHER, SELFPAY ==
--- NOTE | 2023-05-14 10:26 | DI.RAD.S_ITS ---
PROCEDURE: FL BARIUM SWALLOW W SPEECH INDICATIONS: Other dysphagia COMPARISON: None. TECHNIQUE: Examination was conducted in conjunction with speech pathology per standard protocol. In the lateral projection, filming was performed of the patient swallowing. AP projection filming may also be performed with patient swallowing. COMPARISON: None FINDINGS/ IMPRESSION: See speech pathology notes for detailed description fluoro time: 5.2 minutes. Forty-nine images saved. Dictated by: Vikash Martinez M.D. on 05/14/2023 at 17:07 Approved by: Vikash Martinez M.D. on 05/14/2023 at 17:08
--- NOTE | 2023-05-14 14:40 | ST.SWALLOW ---
Visit Care Team Role Provider Type Robert Bland MD Primary Care Provider Physician Specialty: Family Practice [facility] [address] [facility] [place], [address] Email: [email or web address] Anival Freeman MD Attending Provider Physician Referring Provider Specialty: Ear, Nose, Throat Address: [address] [place] [address] [place], [address] Email: [email or web address] Modified Barium Swallow Study [facility]IA[facility] Modified Barium Swallow Study Start: 05/14/23 13:18 Freq: Status: Active Protocol: Document 05/14/23 13:19 LNK (Rec: 05/14/23 14:37 LNK [id number]) Modified Barium Swallow Study Total Time Visit Start Time 11:00 Visit Stop Time 11:45 Total Visit Minutes 45 Referral Referring Physician KETURAH Liao Reason for Referral dysphagia Setting Setting Outpatient Care Patient Information Identification Type Name,Date of Patient History Pt was seen for a Modified Barium Swallow Study at the referral of KETURAH Maria. According tot he pt he has been coughing/choking on small crumbly foods such as rice, crackers, etc. He also reports a coughing response when eating chocolate as well as with liquids. Pt reported a PMH of sleep apnea (with velar surgical intervention in the 1980s), smoking x 55 years, and reflux treated with Omneprozol. Subjective Observations Pt was seated in the fluoroscopy chair with directions and procedures described for him. He indicted he understood and agreed to proceed. Patient Positioning Position View Lat-A/P Imaging Lateral View Textures Administered Trials Presented Thin Liquid via Spoon (IDDSI 0 ),Thin Liquid via Cup (IDDSI 0 ),Extremely Thick Liquid via Spoon (IDDSI 4),Regular (IDDSI 7) Barium Tablet Yes The IDDSI Framework Protocol: IDDSI.1 Oral Impairment Source: The Modified Barium Swallow Impairment Profile (MBSImP??) Lip Closure No labial escape Bolus Transport/Lingual Motion Brisk tongue motion Oral Residue Trace residue lining oral structures Location Tongue Initiation of Pharyngeal Swallow Bolus head at pyriforms Additional Oral Impairment Observations OME and DKS were observed to be WNL. Pt's dentition showed missing posterior teeth. Mastication was complete with rotary chew. Bolus formation, control and AP transition were WFL. Pharyngeal Impairment Source: The Modified Barium Swallow Impairment Profile (MBSImP??) Soft Palate Elevation No bolus between soft palate & pharyngeal wall Laryngeal Elevation Part.sup.move.thyroid cart/ part.approx.arytenoids to epiglot.petiole Anterior Hyoid Excursion Partial anterior movement Epiglottic Movement No inversion Laryngeal Vestibular Closure Incomplete; narrow column air/ contrast in laryngeal vestibule Pharyngeal Stripping Wave Present - diminished Pharyngoesophageal Segment Opening Complete distention & complete duration; no obstruction of flow Tongue Base Retraction Wide column of contrast/air betwn tongue base & post. pharyngeal wall Pharyngeal Residue Collection of residue within/ on pharyngeal structures Location Diffuse (>3 areas) Additional Pharyngeal Impairment Base of tongue retraction Observations weakness noted with reduced hyolaryngeal elevation and movement of the hyoid. Epiglottic inversion is inconsistent overall. With liquid trials, the epiglottis was, at best observed in a horizontal position within the pharynx with it's tip curled against the posterior pharyngeal wall. However with increased bolus size/mass (i.e ., semi-solid, solid trials), the epiglottis was observed to invert. Valecullar pooling following the semi-solid and solid trials was significant, requiring several swallow attempts to clear pooling. A water wash was used but did not clear the pooling in the valeculla. Pt remarked that the swallow attempts observed were similar to wht he experiences at home. Pharyngeal pooling was observed at the base of the tongue, the valeculla, and posterior pharyngeal wall. This may be related to diminished stripping of the posterior wall re: control of the bolus through the pharynx. Penetration observed x3 into the laryngeal vestibule (PAS3- penetrates larynx above folds, visible laryngeal residue), indicating incomplete laryngeal closure. The pt was unable to swallow 11mm barium tablet stuck in his valeculla for over 3 minutes and despite several water swallows (~2 cups). A/P View Textures Administered Trials Presented Thin Liquid via Cup (IDDSI 0) The IDDSI Framework Protocol: IDDSI.1 A/P View Observations Pharyngeal Contraction Complete Esophageal Clearance Upright Position Complete clearance; esophageal coating Vocal Fold Function Good Esophageal Function WFL Additional A-P Observations Pt was unable to swallow 11mm barium tablet as it remained within the valeculla over 3 minutes until pt coughed/ expectorated the tablet. The tablet remained in the valeculla despite multiple swallows of water (~ 2 cups). Thin barium was observed to clear the esophagus in a timely manner. Clinical Impressions Dysphagia Type Pharyngeal Findings Oral phase of swallowing and esophageal phase were observed to be WFL Pharyngeal weakness overall was noted with significantly reduced epiglottal inversion ( Please review pharyngeal and esophageal phase summaries for details). Swallowing therapy is recommended for base of tongue exercises as well as safe swallow strategy education. Rehabilitation Potential Excellent Patient Appropriate for Therapy Yes Recommendations Diet Liquids Order Thin (IDDSI 0) Diet Order Easy to Chew (IDDSI 7) Medication Recommendation Crushed in Carrier Aspiration Precautions Recommended Precautions Upright at 90 Degrees, Alternate Liquids/Solids,Small Bites/Sips,Liquids from Cup Treatment Plan Therapy Recommendations Outpatient Speech Therapy Therapy Strategy Recommendations Sitting Upright (90 deg), Liquids from Cup,Small Bites and Sips,Alternate Liquids/ Solids
== END ==
LOC: RAD 10:25
PROVIDERS: PCP Family Medicine; Referring Provider Otolaryngology; Visit Provider Otolaryngology
DX: R13.19 Other dysphagia (principal)
CPT/HCPCS: 74230; 92611

== ENCOUNTER 2023-06-04 09:34 | Day surgery (SDC) | payer MEDICARE, OTHER, SELFPAY ==
--- NOTE | 2023-06-04 | PATH_ITS ---
[facility] Accession Number: [id number] No. of containers..05 Tissue . 01 Material submitted: . PART A: esophagus - ESOPHAGEAL PART B: duodenum - DUODENAL PART C: gastrointestinal site - GASTRIC PART D: colon - TRANSVERSE COLON POLYP PART E: colon - RECTAL SIGMOID . 01 Diagnosis: Part A: ESOPHAGEAL: Squamous mucosa with no diagnostic alterations. Eosinophils are not increased. . Part B: DUODENAL: Duodenal mucosa with no diagnostic alterations. No active inflammation and no evidence of celiac disease. . Part C: GASTRIC: Gastric mucosa with no diagnostic alterations. No Helicobacter organisms identified on H/E stain. No intestinal metaplasia, dysplasia, or malignancy identified. . Part D: TRANSVERSE COLON POLYP: Tubular adenoma. . Part E: RECTAL SIGMOID: Colonic mucosa with no diagnostic alterations. No active inflammation, granulomas, dysplasia, or malignancy identified. No evidence of colitis. [facility] 06/06/2023 1113 Local . 01 Electronically signed: . Gt Katz MD, Pathologist NPI- [id number] . 01 Gross description: . Part A: ESOPHAGEAL: Received in formalin are 3 fragment(s) of potter, soft tissue measuring 0.1 x 0.1 x 0.1 cm to 0.3 x 0.2 x 0.2 cm submitted entirely in 1 cassette(s) . Part B: DUODENAL: Received in formalin are 2 fragment(s) of potter, soft tissue measuring 0.2 x 0.2 x 0.2 cm to 0.3 x 0.2 x 0.2 cm submitted entirely in 1 cassette(s) . Part C: GASTRIC: Received in formalin is 1 fragment(s) of potter, soft tissue measuring 0.3 x 0.3 x 0.2 cm submitted entirely in 1 cassette(s) . Part D: TRANSVERSE COLON POLYP: Received in formalin is 1 fragment(s) of potter, soft tissue measuring 0.5 x 0.4 x 0.4 cm submitted entirely in 1 cassette(s) . Part E: RECTAL SIGMOID: Received in formalin are multiple fragment(s) of potter, soft tissue measuring 0.1 x 0.1 x 0.1 cm to 0.3 x 0.2 x 0.2 cm submitted entirely in 1 cassette(s) /SAL 06/06/2023 1113 Local . 01 Pathologist provided ICD-10: D12.3, R19.7 . 01 CPT . 775594, 169857, [id number], [id number], [id number] Specimen Comment: A courtesy copy of this report has been sent to [phone] Performed at: 01 [facility] [address] [place] [address], [place], [place] [id number] MD Gt Katz MD Phone: [phone]
[2023-06-04] MEDS: LACTATED RINGERS 1,000 ML 42 ML IV (09:52)
[2023-06-04 10:15] VITALS: BP 144/98; PULSE 110; RESP 18; TEMP 36.4; O2SAT 94
--- NOTE | 2023-06-04 10:44 | PM.HP.1 ---
History of Present Illness History of Present Illness Date Patient Seen: 06/04/23 Chief complaint: Dx Colonoscopy w/poss bx Narrative: Rectal bleeding and dysphagia [facility] Medical History (Updated 07/08/22 @ 00:00 by ) Anxiety Obesity Tobacco abuse Hypertension Dysphagia History of colon polyps Umbilical hernia Hyperlipidemia Mild acid reflux Surgical History History of esophagogastroduodenoscopy (EGD) History of cataract surgery History of uvulopalatopharyngoplasty History of colonoscopy History of umbilical hernia repair Family History Father Heart disease Social History household members: spouse Smoking Status: Current every day smoker alcohol intake: never Meds Home Medications and Allergies Home Medications Medication Instructions Recorded Confirmed Type losartan 25 mg tablet 25 mg PO DAILY ##0 04/30/16 06/04/23 History omeprazole 40 mg capsule,delayed 40 mg PO DAILY 12/24/17 06/04/23 History release atorvastatin 40 mg tablet 40 mg PO DAILY 06/04/23 06/04/23 History Allergies Allergy/AdvReac Type Severity Reaction Status Date / Time Penicillins [PENICILLINS] Allergy Mild RASH Verified 06/04/23 09:59 Exam Vital Signs (past 8 hours): - 06/04/23 10:15 Temperature 97.6 F Pulse Rate 110 H Respiratory Rate 18 Blood Pressure 144/98 H Pulse Oximetry 94 Oxygen Delivery Method Room Air Oxygen Delivery Method Room Air Narrative Exam Narrative: Oropharynx free of lesions Chest clear to auscultation percussion Cardiac exam reveals no S3 or murmur Assessment & Plan Assessment & Plan narrative: Dysphagia need for upper endoscopy and history of rectal bleeding need for colonoscopy. Risks, benefits, alternatives have been explained.
--- NOTE | 2023-06-04 10:46 | PM.OP.EC ---
Operative Date/Time/Diagnoses Date of procedure: 06/04/23 Procedure & Clinicians Study performed: EGD and colonoscopy Indications: Dysphagia and rectal bleeding Surgeon: David Avila Procedure Notes Procedure in detail: After informed consent was obtained the patient was placed in left lateral decubitus position. The video upper scope was placed into the oropharynx and with the patient's help swallowed into the esophagus. The esophagus stomach and duodenum were carefully examined. On withdrawal retroflexed view the GE junction was performed. The scope was removed. The patient tolerated procedure well. The patient was then turned to the colonoscope substituted. This was introduced the rectum slowly advanced cecum. Preparation was good. On slow withdrawal mucosa was carefully examined. The scope was removed. The patient tolerated procedure well. Blood loss none Complications none Sedation mac Findings EGD 1. Yellow nodules in the back of the tongue possible Sophia 2. Normal body of the esophagus biopsies taken to rule out eosinophilic esophagitis 3. Possibility of mild stricture at the GE junction as with slight tightness around the scope that was mild. 4. Enlarged folds in the stomach biopsies taken to rule out Helicobacter 5. Normal duodenal bulb and sweep biopsies taken to rule out celiac Colonoscopy 1. 6 mm sessile transverse colon polyp cold snared removed completely 2. Scattered sigmoid diverticula 3. Scattered ecchymotic changes throughout the sigmoid colon which may indicate resolving colitis. Biopsies taken Will be in touch regarding his biopsies. Will also send in some nystatin swish and swallow for his presumed posterior pharynx Sophia. No so he
[2023-06-04 11:28] VITALS: BP 128/90; PULSE 100; RESP 19; TEMP 36.1; O2SAT 93
[2023-06-04 11:32] VITALS: BP 129/92; PULSE 101; RESP 19; O2SAT 95
[2023-06-04 11:37] VITALS: BP 140/85; PULSE 92; RESP 19; O2SAT 94
[2023-06-04 11:44] VITALS: BP 141/97; PULSE 96; RESP 14; O2SAT 94
== END 2023-06-04 12:01 | disposition home or self-care (01) ==
PROVIDERS: Family Provider Family Medicine; PCP Family Medicine; Referring Provider Internal Medicine Gastroenterology; Visit Provider Internal Medicine Gastroenterology
PROC: 0DJD8ZZ Inspection of Lower Intestinal Tract, Via Natural or Artificial Opening Endoscopic (ICD-10-PCS; CPT 45378; principal; 2023-06-04 10:30)
PROC: 0DJ08ZZ Inspection of Upper Intestinal Tract, Via Natural or Artificial Opening Endoscopic (ICD-10-PCS; CPT 43235; 2023-06-04 10:30)
DX: K62.5 Hemorrhage of anus and rectum (principal); R19.7 Diarrhea, unspecified; K57.30 Diverticulosis of large intestine without perforation or abscess without bleeding; D12.3 Benign neoplasm of transverse colon
CPT/HCPCS: 45385; 45380; 43239; J2704

== ENCOUNTER 2023-08-25 09:45 | Outpatient (RCR) | payer MEDICARE, OTHER, SELFPAY ==
--- NOTE | 2023-06-30 11:53 | ST.OPIE ---
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 Bland Reason for Referral Pharyngeal dysphagia Setting Assessment Location Outpatient Care Visit Type Note Type Initial evaluation Next Note Type Next Note Type Treatment Note Patient Information Identification Type Name History Pt is a 77 year old male seen this date for swallow evaluation. Pt reports swallowing difficulties have been going on for about 5 years. Specifically, he states he has been coughing/choking on small crumbly foods such as rice, crackers, etc with him pointing to the level of the sternal notch. He also reports a coughing response when eating chocolate and powder sugar as well as with liquids. He states no difficulties taking multiple pills at a time, except aspirin will occasionally get stuck. Pt reported a PMH of sleep apnea (with velar surgical intervention in the 1980s), smoking x 55 years, and reflux treated with Omeprazol. In regards to reflux, he reports he also tries to eat 3 hours before going to bed and sleeps with [place] about [address] Freeman, ENT, on 01/17 d/t dysphagia. He had a flexible laryngoscopy done, which was norrmal. He was referred for a swallow study from his ENT. Pt had a MBS completed on 05/14/23 with the following impressions/ recommendations: Clinical Impressions Dysphagia Type Pharyngeal Findings Oral phase of swallowing and esophageal phase were observed to be WFL Pharyngeal weakness overall was noted with significantly reduced epiglottal inversion ( Please review pharyngeal and esophageal phase summaries for details). Swallowing therapy is recommended for base of tongue exercises as well as safe swallow strategy education. Rehabilitation Potential Excellent Patient Appropriate for Therapy Yes Recommendations Diet Liquids Order Thin (IDDSI 0) Diet Order Easy to Chew ( IDDSI 7) Medication Recommendation Crushed in Carrier Aspiration Precautions Recommended Precautions Upright at 90 Degrees, Alternate Liquids/Solids,Small Bites/Sips,Liquids from Cup Treatment Plan Therapy Recommendations Outpatient Speech Therapy Therapy Strategy Recommendations Sitting Upright (90 deg), Liquids from Cup,Small Bites and Sips,Alternate Liquids/ Solids Subjective Observations Pt arrived to therapy on time. He lives at home alone and still works. He owns a [email or web address] company. Reported by Patient/Caregiver Other Symptoms Coughing,Difficulty swallowing liquids,Difficulty swallowing pills,Difficulty swallowing solids,Food gets stuck Comment Pt reports swallow difficulties do not cause him to not eat certain foods, he just states he makes sure to be careful and chew food up well. Current Diet Regular (IDDSI 7) Baseline Feeding Method Independent in self-feeding The IDDSI Framework Protocol: IDDSI.1 Objective Assessment Mental Status Alert,Responsive,Cooperative Oral Integrity WFL Dentition Missing teeth Comment OME and DKS were observed to be WNL. Pt's dentition showed missing posterior teeth. Mastication was complete with rotary chew. Bolus formation, control and AP transition were WFL. Food and Liquid Trials Position During Assessment Upright (90 degrees) Liquids Trialed Thin (IDDSI 0) Solid Trials Soft & Bite-sized (IDDSI 6), Regular (IDDSI 7) Administration Type Cup single sip,Self-feeding Oral Impairment Within functional limits Oral Phase Comments Pt consumed ranjit crackers, diced peaches and 4 oz of thin juice via cup. Pt able to feed self independently. For reg/soft solids of ranjit crackers and peaches he demonstrated adequate bite size and rate, prolonged mastication however adequate bolus formation and control. For thin juice via cup he exhibited adequate sip size and rate, good oral acceptance and containment. Pharyngeal Impairment Mildly impaired Pharyngeal Phase Comments For ranjit crackers Pt reported no feeling of globus sensation, however for peaches he reported 2x globus sensation. He stated he didn't think he fully chewed up one of the peaches, resulting in it feeling stuck in his throat , however cleared with liquid wash. He indepedently alternated liquids/solids to assist with intake. No overt s /s of aspiration withi thin liquids. No coughing/choking observed with all trials. The IDDSI Framework Protocol: IDDSI.1 Findings Swallowing Function Pharyngeal phase dysphagia Severity of Swallow Impairment Mildly-moderately impaired Contributing Factors to Swallow Impaired airway protection Impairment Prognosis Good Comment ST educated Pt on MBS results and recommendations. Impact on Safety and Functioning Risk for aspiration Recommendations Instrumental Assessment No Swallowing Treatment Yes Frequency 1x/week Duration 3 months Recommended Solids Regular (IDDSI 7) Recommended Liquids Thin (IDDSI 0) Other Recommendations ST recommends regular solids and thin liquids, however Pt may consider avoiding crumbly foods at this time or foods that may cause a globus sensation. ST is warranted in order to strengthen pharyngeal phase of the swallow. Safety Precautions/Swallowing Remain upright (90 degrees) Recommendations during all oral intake,Upright position at least 30 minutes after meals,Small bites and sips when eating,Slow rate; swallow between bites, Alternate liquids and solids, Strict oral care after intake Medication Recommendations As Tolerated Education Patient/Caregiver Education Described results of evaluation,Patient expressed understanding of evaluation, Patient expressed agreement with goals & treatment plans, Patient requires further education/training Goals Short-term Goals STG 1: Pt will tolerate applications of NMES for improved swallow function as evidenced by increased toleration of least restrictive PO diet consistencies. STG 2: Pt will tolerate prescribed diet with <5% overt s/s of aspiration/dysphagia with use of compensatory swallowing strategies and minimal cues. STG 3: Pt will complete hyolaryngeal strengthening exercises for improved pharyngeal phase of swallow with minimal cueing with 90% accuracy. STG 4: Pt will complete oral motor exercises of increasing complexity and duration for improved oral musculature and swallow function 90% accuracy given minimal cues. Long-term Goals LTG 1: Patient will consume safest and most efficient least restrictive diet with no clinical s/s of aspiration or dysphagia 100% of the time in order to meet primary nutrition/hydration needs.
--- NOTE | 2023-06-30 11:53 | ST.OPPOC ---
Physical, Occupational & Speech Therapy At [facility] Visit Care Team Role Provider Type Robert Bland MD Attending Provider Physician Family Provider Primary Care Provider Referring Provider Address: [place], [address] Speech Pathology Plan of Care Plan of Care Dates 06/30/23-09/30/[address] Bland Patient History Pt is a 77 year old male seen this date for swallow evaluation. Pt reports swallowing difficulties have been going on for about 5 years. Specifically, he states he has been coughing/choking on small crumbly foods such as rice, crackers, etc with him pointing to the level of the sternal notch. He also reports a coughing response when eating chocolate and powder sugar as well as with liquids. He states no difficulties taking multiple pills at a time, except aspirin will occasionally get stuck. Pt reported a PMH of sleep apnea (with velar surgical intervention in the ), smoking x 55 years, and reflux treated with Omeprazol. In regards to reflux, he reports he also tries to eat 3 hours before going to bed and sleeps with [place] about [address] Freeman, ENT, on 05/05/23 d/t dysphagia . He had a flexible laryngoscopy done, which was norrmal. He was referred for a swallow study from his ENT. Pt had a MBS completed on 05/14/23 with the following impressions/recommendations: Clinical Impressions Dysphagia Type Pharyngeal Findings Oral phase of swallowing and esophageal phase were observed to be WFL Pharyngeal weakness overall was noted with significantly reduced epiglottal inversion ( Please review pharyngeal and esophageal phase summaries for details). Swallowing therapy is recommended for base of tongue exercises as well as safe swallow strategy education. Rehabilitation Potential Excellent Patient Appropriate for Therapy Yes Recommendations Diet Liquids Order Thin ( IDDSI 0) Diet Order Easy to Chew (IDDSI 7) Medication Recommendation Crushed in Carrier Aspiration Precautions Recommended Precautions Upright at 90 Degrees, Alternate Liquids/Solids,Small Bites/Sips,Liquids from Cup Treatment Plan Therapy Recommendations Outpatient Speech Therapy Therapy Strategy Recommendations Sitting Upright (90 deg), Liquids from Cup,Small Bites and Sips,Alternate Liquids/ Solids MBS Comments Oral phase of swallowing and esophageal phase were observed to be WFL Pharyngeal weakness overall was noted with significantly reduced epiglottal inversion ( Please review pharyngeal and esophageal phase summaries for details). Swallowing therapy is recommended for base of tongue exercises as well as safe swallow strategy education. Short-term Goals STG 1: Pt will tolerate applications of NMES for improved swallow function as evidenced by increased toleration of least restrictive PO diet consistencies. STG 2: Pt will tolerate prescribed diet with <5% overt s/s of aspiration/dysphagia with use of compensatory swallowing strategies and minimal cues. STG 3: Pt will complete hyolaryngeal strengthening exercises for improved pharyngeal phase of swallow with minimal cueing with 90% accuracy. STG 4: Pt will complete oral motor exercises of increasing complexity and duration for improved oral musculature and swallow function 90% accuracy given minimal cues. Long-term Goals LTG 1: Patient will consume safest and most efficient least restrictive diet with no clinical s/s of aspiration or dysphagia 100% of the time in order to meet primary nutrition/ hydration needs. Comment: Electronically Signed by: KAILA Rankin 06/30/23 2918 If you are in agreement with this Plan of Care, please return a signed and dated copy. I have reviewed this Plan of Care and certify that the skilled therapy services above are required to meet the patient?s needs. Physician Signature Date Printed Name and Credentials Clinical Instructor Signature Printed Name and Credentials
--- NOTE | 2023-07-07 11:19 | ST.OPTN ---
Visit Care Team Role Provider Type Robert Bland MD Attending Provider Physician Family Provider Primary Care Provider Referring Provider Address: [facility] [address], [place], [address] TIME CHECKER Treatment Note TIME CHECKER Treatment Note Start: 07/07/23 10:45 Freq: Status: Active Protocol: Document 07/07/23 11:07 MA (Rec: 07/07/23 11:15 MA [id number]) Speech Pathology Treatment Note Session Time Visit Start Time 10:30 Visit Stop Time 11:05 Total Visit Minutes 35 Visit Information Visit Number 2 Plan of Care Dates 06/30/23-09/30/23 Insurance Information Medicare Setting Treatment Setting Outpatient Care General Information Patient History Pt is a 77 year old male seen this date for swallow evaluation. Pt reports swallowing difficulties have been going on for about 5 years. Specifically, he states he has been coughing/choking on small crumbly foods such as rice, crackers, etc with him pointing to the level of the sternal notch. He also reports a coughing response when eating chocolate and powder sugar as well as with liquids. He states no difficulties taking multiple pills at a time, except aspirin will occasionally get stuck. Pt reported a PMH of sleep apnea (with velar surgical intervention in the 1980s), smoking x 55 years, and reflux treated with Omeprazol. In regards to reflux, he reports he also tries to eat 3 hours before going to bed and sleeps with [place] about [address] Freeman, ENT, on 01/17 d/t dysphagia. He had a flexible laryngoscopy done, which was norrmal. He was referred for a swallow study from his ENT. Pt had a MBS completed on 05/14/23 with the following impressions/ recommendations: Clinical Impressions Dysphagia Type Pharyngeal Findings Oral phase of swallowing and esophageal phase were observed to be WFL Pharyngeal weakness overall was noted with significantly reduced epiglottal inversion ( Please review pharyngeal and esophageal phase summaries for details). Swallowing therapy is recommended for base of tongue exercises as well as safe swallow strategy education. Rehabilitation Potential Excellent Patient Appropriate for Therapy Yes Recommendations Diet Liquids Order Thin (IDDSI 0) Diet Order Easy to Chew ( IDDSI 7) Medication Recommendation Crushed in Carrier Aspiration Precautions Recommended Precautions Upright at 90 Degrees, Alternate Liquids/Solids,Small Bites/Sips,Liquids from Cup Treatment Plan Therapy Recommendations Outpatient Speech Therapy Therapy Strategy Recommendations Sitting Upright (90 deg), Liquids from Cup,Small Bites and Sips,Alternate Liquids/ Solids Subjective Observations/Patient Presentation Pt arrived on time to therapy. He reports 1x coughing event since last seen, which consisted of coughing after eating potato chips d/t globus sensation. He also states he ate 3 chocolate caramels and starting coughing on the third one. Objective Treatment Activities Neuromuscular electrical stimulation (NMES), PO trials, swallowing exercises Assessment Patient Response to Treatment Excellent Rehab Potential Excellent Impairments Identified Swallow Assessment of Improvement ST educated Pt on NMES. Pt compliant. ST prepped Pt for NMES by placing electrodes in the 3h position with Pt tolerating stim at a level 8. 0mA. Pt participated in NMES in conjunction with swallow exercises and PO trials. Pt consumed saltine crackers, ranjit crackers and diced peachhes with 4 oz of juice via cup. He requested to eat the crackers without liquid to see if the globus sensation would occur. He reported 2x globus sensation, first time after eating 2 saltines and 2 ranjit crackers, which he states he was shocked he hadn' t felt something stuck in his throat sooner, and the second time was with the diced peaches. Pt appeared to benefit from cues to utilize effortful swallow/chin tuck to clear globus sensation. He also benefited from a liquid wash. He coughed 1x with reg solids d/t feeling of something stuck in his throat. For thin liquids he demonstrated no overt s/s of aspiration. ST cued Pt to utilize effortful swallow with all trials. ST provided educational handout of swallow exercises, such as effortful swallow, orion, and Joe and provided a visual demonstration. Pt demonstrated understanding. ST encouraged Pt to complete exercises 2-3x/day 10 reps each. Pt verbalized understanding. ST also encouraged Pt to utilize effortful swallow/chin tuck when feeling something is stuck in his throat. ST to continue per POC.
--- NOTE | 2023-07-14 11:07 | ST.OPTN ---
Visit Care Team Role Provider Type Robert Bland MD Attending Provider Physician Family Provider Primary Care Provider Referring Provider Address: [facility] [address], [place], [address] SENIOR C SOFTWARE ENGINEER Treatment Note SENIOR C SOFTWARE ENGINEER Treatment Note Start: 07/07/23 10:45 Freq: Status: Active Protocol: Document 07/14/23 11:03 MT (Rec: 07/14/23 11:07 MT [id number]) Speech Pathology Treatment Note Session Time Visit Start Time 10:30 Visit Stop Time 11:05 Total Visit Minutes 35 Visit Information Visit Number 3 Plan of Care Dates 06/30/23-09/30/23 Insurance Information Medicare Setting Treatment Setting Outpatient Care General Information Patient History Pt is a 77 year old male seen this date for swallow evaluation. Pt reports swallowing difficulties have been going on for about 5 years. Specifically, he states he has been coughing/choking on small crumbly foods such as rice, crackers, etc with him pointing to the level of the sternal notch. He also reports a coughing response when eating chocolate and powder sugar as well as with liquids. He states no difficulties taking multiple pills at a time, except aspirin will occasionally get stuck. Pt reported a PMH of sleep apnea (with velar surgical intervention in the 1980s), smoking x 55 years, and reflux treated with Omeprazol. In regards to reflux, he reports he also tries to eat 3 hours before going to bed and sleeps with [place] about [address] Freeman, ENT, on 01/17 d/t dysphagia. He had a flexible laryngoscopy done, which was norrmal. He was referred for a swallow study from his ENT. Pt had a MBS completed on 05/14/23 with the following impressions/ recommendations: Clinical Impressions Dysphagia Type Pharyngeal Findings Oral phase of swallowing and esophageal phase were observed to be WFL Pharyngeal weakness overall was noted with significantly reduced epiglottal inversion ( Please review pharyngeal and esophageal phase summaries for details). Swallowing therapy is recommended for base of tongue exercises as well as safe swallow strategy education. Rehabilitation Potential Excellent Patient Appropriate for Therapy Yes Recommendations Diet Liquids Order Thin (IDDSI 0) Diet Order Easy to Chew ( IDDSI 7) Medication Recommendation Crushed in Carrier Aspiration Precautions Recommended Precautions Upright at 90 Degrees, Alternate Liquids/Solids,Small Bites/Sips,Liquids from Cup Treatment Plan Therapy Recommendations Outpatient Speech Therapy Therapy Strategy Recommendations Sitting Upright (90 deg), Liquids from Cup,Small Bites and Sips,Alternate Liquids/ Solids Subjective Observations/Patient Presentation Pt arrived on time to therapy. He reports no swallowing difficulties since last seen. He states he makes sure to chew well and drink while eating to prevent from food from being stuck. Chief Complaint(s) Swallowing Objective Treatment Activities Neuromuscular electrical stimulation (NMES), PO trials, swallowing exercises Assessment Patient Response to Treatment Excellent Rehab Potential Excellent Impairments Identified Swallow Assessment of Improvement ST prepped Pt for NMES by placing electrodes in the 3h position with Pt tolerating stim at a level 9.0mA. Pt participated in NMES in conjunction with swallow exercises and PO trials. Pt consumed ranjit crackers and diced peaches with 4 oz of juice via cup. For ranjit crackers Pt demonstrated no overt s/s of aspiration or occurrences of globus sensation. For peaches he experienced 1x globus sensation resulting in 1x cough reflex. Pt appeared to benefit from cues to utilize effortful swallow to clear globus sensation. He also benefited from a liquid wash. For thin liquids he demonstrated no overt s/s of aspiration. ST cued Pt to utilize effortful swallow with all trials. ST educated Pt to continue swallow exercises at home, such as effortful swallow, orion, and Joe. ST encouraged Pt to complete exercises 2-3x/day 10 reps each. Pt verbalized understanding. ST also encouraged Pt to utilize effortful swallow/chin tuck when feeling something is stuck in his throat. ST to continue per POC.
--- NOTE | 2023-07-22 11:51 | ST.OPTN ---
Visit Care Team Role Provider Type Robert Bland MD Attending Provider Physician Family Provider Primary Care Provider Referring Provider Address: [facility] [address], [place], [address] LICENSING AND REGISTRATION DIRECTOR Treatment Note LICENSING AND REGISTRATION DIRECTOR Treatment Note Start: 07/07/23 10:45 Freq: Status: Active Protocol: Document 07/22/23 11:32 MA (Rec: 07/22/23 11:44 MA [id number]) Speech Pathology Treatment Note Session Time Visit Start Time 11:15 Visit Stop Time 11:55 Total Visit Minutes 45 Visit Information Visit Number 4 Plan of Care Dates 06/30/23-09/30/23 Insurance Information Medicare Setting Treatment Setting Outpatient Care General Information Patient History Pt is a 77 year old male seen this date for swallow evaluation. Pt reports swallowing difficulties have been going on for about 5 years. Specifically, he states he has been coughing/choking on small crumbly foods such as rice, crackers, etc with him pointing to the level of the sternal notch. He also reports a coughing response when eating chocolate and powder sugar as well as with liquids. He states no difficulties taking multiple pills at a time, except aspirin will occasionally get stuck. Pt reported a PMH of sleep apnea (with velar surgical intervention in the 1980s), smoking x 55 years, and reflux treated with Omeprazol. In regards to reflux, he reports he also tries to eat 3 hours before going to bed and sleeps with [place] about [address] Freeman, ENT, on 01/17 d/t dysphagia. He had a flexible laryngoscopy done, which was norrmal. He was referred for a swallow study from his ENT. Pt had a MBS completed on 05/14/23 with the following impressions/ recommendations: Clinical Impressions Dysphagia Type Pharyngeal Findings Oral phase of swallowing and esophageal phase were observed to be WFL Pharyngeal weakness overall was noted with significantly reduced epiglottal inversion ( Please review pharyngeal and esophageal phase summaries for details). Swallowing therapy is recommended for base of tongue exercises as well as safe swallow strategy education. Rehabilitation Potential Excellent Patient Appropriate for Therapy Yes Recommendations Diet Liquids Order Thin (IDDSI 0) Diet Order Easy to Chew ( IDDSI 7) Medication Recommendation Crushed in Carrier Aspiration Precautions Recommended Precautions Upright at 90 Degrees, Alternate Liquids/Solids,Small Bites/Sips,Liquids from Cup Treatment Plan Therapy Recommendations Outpatient Speech Therapy Therapy Strategy Recommendations Sitting Upright (90 deg), Liquids from Cup,Small Bites and Sips,Alternate Liquids/ Solids Subjective Observations/Patient Presentation Pt arrived on time to therapy. Pt reports 1x occurrence of food feeling stuck in throat, which consisted of linguini, which he states he was able to cough up. Chief Complaint(s) Swallowing Objective Treatment Activities Neuromuscular electrical stimulation (NMES), PO trials, swallowing exercises Assessment Patient Response to Treatment Excellent Rehab Potential Excellent Impairments Identified Swallow Assessment of Improvement ST prepped Pt for NMES by placing electrodes in the 3h position with Pt tolerating stim at a level 8.0mA. Pt participated in NMES in conjunction with swallow exercises and PO trials. Pt consumed ranjit crackers with peanut butter and diced peaches with 4 oz of juice via cup. For ranjit crackers with peanut butter Pt demonstrated no overt s/s of aspiration or occurrences of globus sensation. 1x globus sensation with ranjit crackers, however able to clear with cough and effortful swallow cue. For peaches he experienced no occurrences of globus sensation. Pt appeared to benefit from cues to utilize effortful swallow to clear globus sensation. He also benefited from a liquid wash. For thin liquids he demonstrated no overt s/s of aspiration. ST cued Pt to utilize effortful swallow with all trials. ST educated Pt to continue swallow exercises at home, such as effortful swallow, orion, and Joe. ST encouraged Pt to complete exercises 2-3x/day 10 reps each. Pt verbalized understanding. ST also encouraged Pt to utilize effortful swallow/chin tuck when feeling something is stuck in his throat. ST to continue per POC.
--- NOTE | 2023-08-04 14:10 | ST.OPTN ---
Visit Care Team Role Provider Type Robert Bland MD Attending Provider Physician Family Provider Primary Care Provider Referring Provider Address: [facility] [address], [place], [address] CULTURAL CENTRE MANAGER Treatment Note CULTURAL CENTRE MANAGER Treatment Note Start: 07/07/23 10:45 Freq: Status: Active Protocol: Document 08/04/23 13:57 MA (Rec: 08/04/23 13:58 MA [id number]) Speech Pathology Treatment Note Session Time Visit Start Time 13:45 Visit Stop Time 14:25 Total Visit Minutes 40 Visit Information Visit Number 5 Plan of Care Dates 06/30/23-09/30/23 Insurance Information Medicare Setting Treatment Setting Outpatient Care General Information Patient History Pt is a 77 year old male seen this date for swallow evaluation. Pt reports swallowing difficulties have been going on for about 5 years. Specifically, he states he has been coughing/choking on small crumbly foods such as rice, crackers, etc with him pointing to the level of the sternal notch. He also reports a coughing response when eating chocolate and powder sugar as well as with liquids. He states no difficulties taking multiple pills at a time, except aspirin will occasionally get stuck. Pt reported a PMH of sleep apnea (with velar surgical intervention in the 1980s), smoking x 55 years, and reflux treated with Omeprazol. In regards to reflux, he reports he also tries to eat 3 hours before going to bed and sleeps with [place] about [address] Freeman, ENT, on 01/17 d/t dysphagia. He had a flexible laryngoscopy done, which was norrmal. He was referred for a swallow study from his ENT. Pt had a MBS completed on 05/14/23 with the following impressions/ recommendations: Clinical Impressions Dysphagia Type Pharyngeal Findings Oral phase of swallowing and esophageal phase were observed to be WFL Pharyngeal weakness overall was noted with significantly reduced epiglottal inversion ( Please review pharyngeal and esophageal phase summaries for details). Swallowing therapy is recommended for base of tongue exercises as well as safe swallow strategy education. Rehabilitation Potential Excellent Patient Appropriate for Therapy Yes Recommendations Diet Liquids Order Thin (IDDSI 0) Diet Order Easy to Chew ( IDDSI 7) Medication Recommendation Crushed in Carrier Aspiration Precautions Recommended Precautions Upright at 90 Degrees, Alternate Liquids/Solids,Small Bites/Sips,Liquids from Cup Treatment Plan Therapy Recommendations Outpatient Speech Therapy Therapy Strategy Recommendations Sitting Upright (90 deg), Liquids from Cup,Small Bites and Sips,Alternate Liquids/ Solids Subjective Observations/Patient Presentation Pt arrived on time to therapy. Pt reports no occurrences of food stuck in his throat. Chief Complaint(s) Swallowing Objective Treatment Activities Neuromuscular electrical stimulation (NMES), PO trials, swallowing exercises Assessment Patient Response to Treatment Excellent Rehab Potential Excellent Impairments Identified Swallow Assessment of Improvement ST prepped Pt for NMES by placing electrodes in the 3h position with Pt tolerating stim at a level 10.0mA. Pt participated in NMES in conjunction with swallow exercises and PO trials. Pt consumed ranjit crackers with peanut butter and diced peaches with 4 oz of juice via cup. For ranjit crackers with peanut butter Pt demonstrated no overt s/s of aspiration or occurrences of globus sensation. For peaches he experienced no occurrences of globus sensation. Pt appeared to benefit from cues to utilize effortful swallow to clear globus sensation. He also benefited from a liquid wash. For thin liquids he demonstrated no overt s/s of aspiration, however reported 1x occurrence of food stuck. ST cued Pt to utilize effortful swallow with all trials. ST educated Pt to continue swallow exercises at home, such as effortful swallow, orion, and Joe. ST encouraged Pt to complete exercises 2-3x/day 10 reps each. Pt verbalized understanding. ST also encouraged Pt to utilize effortful swallow/chin tuck when feeling something is stuck in his throat. ST to continue per POC.
--- NOTE | 2023-08-11 14:15 | ST.OPTN ---
Visit Care Team Role Provider Type Robert Bland MD Attending Provider Physician Family Provider Primary Care Provider Referring Provider Address: [facility] [address], [place], [address] ICEBOX MAN Treatment Note ICEBOX MAN Treatment Note Start: 07/07/23 10:45 Freq: Status: Active Protocol: Document 08/11/23 13:57 MA (Rec: 08/11/23 13:59 MA [id number]) Speech Pathology Treatment Note Session Time Visit Start Time 13:45 Visit Stop Time 14:25 Total Visit Minutes 40 Visit Information Visit Number 6 Plan of Care Dates 06/30/23-09/30/23 Insurance Information Medicare Setting Treatment Setting Outpatient Care General Information Patient History Pt is a 77 year old male seen this date for swallow evaluation. Pt reports swallowing difficulties have been going on for about 5 years. Specifically, he states he has been coughing/choking on small crumbly foods such as rice, crackers, etc with him pointing to the level of the sternal notch. He also reports a coughing response when eating chocolate and powder sugar as well as with liquids. He states no difficulties taking multiple pills at a time, except aspirin will occasionally get stuck. Pt reported a PMH of sleep apnea (with velar surgical intervention in the 1980s), smoking x 55 years, and reflux treated with Omeprazol. In regards to reflux, he reports he also tries to eat 3 hours before going to bed and sleeps with [place] about [address] Freeman, ENT, on 01/17 d/t dysphagia. He had a flexible laryngoscopy done, which was norrmal. He was referred for a swallow study from his ENT. Pt had a MBS completed on 05/14/23 with the following impressions/ recommendations: Clinical Impressions Dysphagia Type Pharyngeal Findings Oral phase of swallowing and esophageal phase were observed to be WFL Pharyngeal weakness overall was noted with significantly reduced epiglottal inversion ( Please review pharyngeal and esophageal phase summaries for details). Swallowing therapy is recommended for base of tongue exercises as well as safe swallow strategy education. Rehabilitation Potential Excellent Patient Appropriate for Therapy Yes Recommendations Diet Liquids Order Thin (IDDSI 0) Diet Order Easy to Chew ( IDDSI 7) Medication Recommendation Crushed in Carrier Aspiration Precautions Recommended Precautions Upright at 90 Degrees, Alternate Liquids/Solids,Small Bites/Sips,Liquids from Cup Treatment Plan Therapy Recommendations Outpatient Speech Therapy Therapy Strategy Recommendations Sitting Upright (90 deg), Liquids from Cup,Small Bites and Sips,Alternate Liquids/ Solids Subjective Observations/Patient Presentation Pt arrived on time to therapy. Pt reports no occurrences of food stuck in his throat. Chief Complaint(s) Swallowing Objective Treatment Activities Neuromuscular electrical stimulation (NMES), PO trials, swallowing exercises Assessment Patient Response to Treatment Excellent Rehab Potential Excellent Impairments Identified Swallow Assessment of Improvement ST prepped Pt for NMES by placing electrodes in the 3h position with Pt tolerating stim at a level 10.0mA. Pt participated in NMES in conjunction with swallow exercises and PO trials. Pt consumed chips and diced peaches with 4 oz of juice via cup. For chips Pt demonstrated no overt s/s of aspiration or occurrences of globus sensation. For peaches he experienced 1x globus sensation. Pt appeared to benefit from cues to utilize effortful swallow to clear globus sensation. He also benefited from a liquid wash. For thin liquids he demonstrated no overt s/s of aspiration. ST cued Pt to utilize effortful swallow with all trials. ST educated Pt to continue swallow exercises at home, such as effortful swallow, orion, and Joe. ST encouraged Pt to complete exercises 2-3x/day 10 reps each. Pt verbalized understanding. ST also encouraged Pt to utilize effortful swallow/chin tuck when feeling something is stuck in his throat. ST to continue per POC.
--- NOTE | 2023-08-18 10:56 | ST.OPTN ---
Visit Care Team Role Provider Type Robert Bland MD Attending Provider Physician Family Provider Primary Care Provider Referring Provider Address: [facility], [place], [address] [employer] AGENT Treatment Note [employer]ENT Treatment Note Start: 07/07/23 10:45 Freq: Status: Active Protocol: Document 08/18/23 10:36 MA (Rec: 08/18/23 10:37 MA [id number]) Speech Pathology Treatment Note Session Time Visit Start Time 10:30 Visit Stop Time 11:10 Total Visit Minutes 40 Visit Information Visit Number 7 Plan of Care Dates 06/30/23-09/30/23 Insurance Information Medicare Setting Treatment Setting Outpatient Care General Information Patient History Pt is a 77 year old male seen this date for swallow evaluation. Pt reports swallowing difficulties have been going on for about 5 years. Specifically, he states he has been coughing/choking on small crumbly foods such as rice, crackers, etc with him pointing to the level of the sternal notch. He also reports a coughing response when eating chocolate and powder sugar as well as with liquids. He states no difficulties taking multiple pills at a time, except aspirin will occasionally get stuck. Pt reported a PMH of sleep apnea (with velar surgical intervention in the 1980s), smoking x 55 years, and reflux treated with Omeprazol. In regards to reflux, he reports he also tries to eat 3 hours before going to bed and sleeps with [place] about [address] Freeman, ENT, on 01/17 d/t dysphagia. He had a flexible laryngoscopy done, which was norrmal. He was referred for a swallow study from his ENT. Pt had a MBS completed on 05/14/23 with the following impressions/ recommendations: Clinical Impressions Dysphagia Type Pharyngeal Findings Oral phase of swallowing and esophageal phase were observed to be WFL Pharyngeal weakness overall was noted with significantly reduced epiglottal inversion ( Please review pharyngeal and esophageal phase summaries for details). Swallowing therapy is recommended for base of tongue exercises as well as safe swallow strategy education. Rehabilitation Potential Excellent Patient Appropriate for Therapy Yes Recommendations Diet Liquids Order Thin (IDDSI 0) Diet Order Easy to Chew ( IDDSI 7) Medication Recommendation Crushed in Carrier Aspiration Precautions Recommended Precautions Upright at 90 Degrees, Alternate Liquids/Solids,Small Bites/Sips,Liquids from Cup Treatment Plan Therapy Recommendations Outpatient Speech Therapy Therapy Strategy Recommendations Sitting Upright (90 deg), Liquids from Cup,Small Bites and Sips,Alternate Liquids/ Solids Subjective Observations/Patient Presentation Pt arrived on time to therapy. Pt reports no occurrences of food stuck in his throat. Chief Complaint(s) Swallowing Objective Treatment Activities Neuromuscular electrical stimulation (NMES), PO trials, swallowing exercises Assessment Patient Response to Treatment Excellent Rehab Potential Excellent Impairments Identified Swallow Assessment of Improvement ST prepped Pt for NMES by placing electrodes in the 3h position with Pt tolerating stim at a level 10.0mA. Pt participated in NMES in conjunction with swallow exercises and PO trials. Pt consumed ranjit crackers and diced peaches with 7 oz of juice via cup. Pt reported 1x globus sensation with ranjit cracker. Pt appeared to benefit from cues to utilize effortful swallow to clear globus sensation. He also benefited from a liquid wash. For thin liquids he demonstrated no overt s/s of aspiration. ST cued Pt to utilize effortful swallow with all trials. ST educated Pt to continue swallow exercises at home, such as effortful swallow, orion, and Joe. ST encouraged Pt to complete exercises 2-3x/day 10 reps each. Pt verbalized understanding. ST also encouraged Pt to utilize effortful swallow/chin tuck when feeling something is stuck in his throat. ST to continue per POC. Plan Frequency of Treatment Once a Week
--- NOTE | 2023-08-25 10:25 | ST.OPDS ---
Visit Care Team Role Provider Type Robert Bland MD Attending Provider Physician Family Provider Primary Care Provider Referring Provider Address: [facility] [address], [place], [address] [employer] ORDER FILLER Treatment Note [employer] F[employer]ER Treatment Note Start: 07/07/23 10:45 Freq: Status: Active Protocol: Document 08/25/23 10:09 MA (Rec: 08/25/23 10:11 MA [id number]) Speech Pathology Treatment Note Session Time Visit Start Time 09:45 Visit Stop Time 10:25 Total Visit Minutes 40 Visit Information Visit Number 8 Plan of Care Dates 06/30/23-09/30/23 Insurance Information Medicare Setting Treatment Setting Outpatient Care General Information Patient History Pt is a 77 year old male seen this date for swallow evaluation. Pt reports swallowing difficulties have been going on for about 5 years. Specifically, he states he has been coughing/choking on small crumbly foods such as rice, crackers, etc with him pointing to the level of the sternal notch. He also reports a coughing response when eating chocolate and powder sugar as well as with liquids. He states no difficulties taking multiple pills at a time, except aspirin will occasionally get stuck. Pt reported a PMH of sleep apnea (with velar surgical intervention in the 1980s), smoking x 55 years, and reflux treated with Omeprazol. In regards to reflux, he reports he also tries to eat 3 hours before going to bed and sleeps with [place] about [address] Freeman, ENT, on 01/17 d/t dysphagia. He had a flexible laryngoscopy done, which was norrmal. He was referred for a swallow study from his ENT. Pt had a MBS completed on 05/14/23 with the following impressions/ recommendations: Clinical Impressions Dysphagia Type Pharyngeal Findings Oral phase of swallowing and esophageal phase were observed to be WFL Pharyngeal weakness overall was noted with significantly reduced epiglottal inversion ( Please review pharyngeal and esophageal phase summaries for details). Swallowing therapy is recommended for base of tongue exercises as well as safe swallow strategy education. Rehabilitation Potential Excellent Patient Appropriate for Therapy Yes Recommendations Diet Liquids Order Thin (IDDSI 0) Diet Order Easy to Chew ( IDDSI 7) Medication Recommendation Crushed in [place] Aspiration Precautions Recommended Precautions Upright at 90 Degrees, Alternate Liquids/Solids,Small Bites/Sips,Liquids from Cup Treatment Plan Therapy Recommendations Outpatient Speech Therapy Therapy Strategy Recommendations Sitting Upright (90 deg), Liquids from Cup,Small Bites and Sips,Alternate Liquids/ Solids Subjective Observations/Patient Presentation Pt arrived on time to therapy. Pt reports 1x small occurrence of swallowing difficulty since last seen, which occurred on potato chips . He also states he would like today to be his day in therapy d/t busy summer schedule and improvements in swallow. Chief Complaint(s) Swallowing Objective Short Term Goals STG 1: Pt will tolerate applications of NMES for improved swallow function as evidenced by increased toleration of least restrictive PO diet consistencies.- MET STG 2: Pt will tolerate prescribed diet with <5% overt s/s of aspiration/ dysphagia with use of compensatory swallowing strategies and minimal cues.- MET (ST recommends regular solids and thin liquids, however to utilize safe swallowing strategies when swallowing difficulties arise.) STG 3: Pt will complete hyolaryngeal strengthening exercises for improved pharyngeal phase of swallow with minimal cueing with 90% accuracy.- MET Night Clerk Goals LTG 1: Patient will consume safest and most efficient least restrictive diet with no clinical s/s of aspiration or dysphagia 100% of the time in order to meet primary nutrition/ hydration needs. - MET Treatment Activities Neuromuscular electrical stimulation (NMES), PO trials, swallowing exercises Assessment Patient Response to Treatment Excellent Rehab Potential Excellent Impairments Identified Swallow Progress Towards Goals Appropriate for Discharge Assessment of Overall Progress Improving Assessment of Improvement ST prepped Pt for NMES by placing electrodes in the 3h position with Pt tolerating stim at a level 11.0mA. Pt participated in NMES in conjunction with swallow exercises and PO trials. Pt consumed ranjit crackers and pudding with 7 oz of juice via cup. Pt reported no occurrences of food stuck in throat. Pt appeared to benefit from cues to utilize effortful swallow to clear globus sensation. He also benefited from a liquid wash. For thin liquids he demonstrated no overt s/s of aspiration. ST cued Pt to utilize effortful swallow with all trials. ST educated Pt to continue swallow exercises at home, such as effortful swallow, orion, and Joe. ST encouraged Pt to complete exercises 2-3x/day 10 reps each. Pt verbalized understanding. ST also encouraged Pt to utilize effortful swallow/chin tuck when feeling something is stuck in his throat. ST communicated plan for Pt to return to therapy if increase in symptoms occurr, however will need a new referral from his doctor. Pt verbalized understanding. Reviewed with Patient Goals,Progress Being Made,Home Exercise Program Plan Frequency of Treatment No Further Therapy
== END 2023-09-02 14:55 | disposition home or self-care (01) ==
LOC: SP 09:45
PROVIDERS: Family Provider Family Medicine; PCP Family Medicine; Referring Provider Family Medicine; Visit Provider Family Medicine
DX: R13.13 Dysphagia, pharyngeal phase (principal)
CPT/HCPCS: 92526; 92610

== ENCOUNTER → 2023-12-03 09:18 | Outpatient (CLI) | payer MEDICARE, OTHER, SELFPAY ==
--- NOTE | 2023-12-03 09:20 | DI.RAD.S_ITS ---
PROCEDURE: XR SCAPULA RT INDICATIONS: Other chronic pain TECHNIQUE: Two views of the scapula were acquired. COMPARISON: None. FINDINGS: Bones: There are no osseous abnormalities. Acromioclavicular and glenohumeral joints: Severe acromioclavicular degeneration appreciated. Enthesophyte projects from the inferior acromion. Glenohumeral joint is normal . Soft tissues: No soft tissue swelling, calcification or mass. 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 on 12/04/2023 at 9:23 Approved by: Kenneth Dunn M.D. on 12/04/2023 at 9:25
--- NOTE | 2023-12-03 09:20 | DI.RAD.S_ITS ---
PROCEDURE: XR SHOULDER RT MIN 2V INDICATIONS: Other chronic pain TECHNIQUE: Three views of the shoulder were acquired. COMPARISON: None. FINDINGS: Bones: There are no osseous abnormalities. Acromioclavicular and glenohumeral joints: Severe acromioclavicular degeneration appreciated. Glenohumeral joint is normal. Soft tissues: No soft tissue swelling, calcification or mass. IMPRESSION: Severe acromioclavicular degeneration. Dictated by: Kenneth Dunn M.D. on 12/04/2023 at 9:45 Approved by: Kenneth Dunn M.D. on 12/04/2023 at 9:46
== END ==
PROVIDERS: Family Provider Family Medicine; PCP Family Medicine; Referring Provider Family Medicine; Visit Provider Family Medicine
DX: M19.011 Primary osteoarthritis, right shoulder (principal); M25.511 Pain in right shoulder; G89.29 Other chronic pain
CPT/HCPCS: 73010; 73030